=== PATIENT | female | born 1980 | race Caucasian/White ===

== ENCOUNTER 2016-05-12 06:49 | Emergency (ER) | payer OTHER ==
--- NOTE | 2016-05-12 07:53 | DIAGNOSTIC IMAGING REPORT ---
PROCEDURE: XR LUMBAR SPINE 2 OR 3 VIEWS INDICATION: LOWER BACK PAIN TECHNIQUE: Three views. COMPARISON: None. FINDINGS: There mild degenerative changes of the lower lumbar facet joints P Osseous structures and disc spaces are otherwise normal. No evidence of an acute process or fracture. Moderate stool and gas distention of the colon suggests obstipation. IMPRESSION: 1. Mild degenerative changes. 2. Otherwise negative lumbar spine. 3. Moderate stool and gaseous distention of the colon. Consider obstipation.
--- NOTE | 2016-05-12 08:24 | ED ORDER SUMMARY ---
..... Patient: FINN HUNTER OrderSheet [facility] VisitID: [id number] [place] [address] 35y, F Registration Date/Time: 05/12/2016 ORDER SHEET Weight: 65.7 kg Allergies: Vicodin, itchy, rash GENERAL ORDERS: Lumbar Spine 2 or 3V Urgent (07:16 05/12/2016 Bjorn Parra) (Ack 7:18 LMuller) (7:40 LMuller) UA-Culture if indicated Urgent (07:23 05/12/2016 Bjorn Parra) (Ack 7:31 LMuller) (7:59 LMuller) MEDICATION ORDERS: Toradol IM 60 mg (NOW) (07:16 05/12/2016 Bjorn Parra) (7:44 LWkeena R.N.) IV FLUIDS: ORDER SHEET NOTES: [Electronically signed by Benny Weeks Dr. (08:49 05/12/2016)] [Electronically signed by Lia Hennessy R.N. (10:32 05/14/2016)] [Electronically locked/signed by Lia Hennessy R.N. (10:32 05/14/2016)]
--- NOTE | 2016-05-12 08:24 | ED CLINICAL REPORT ---
Clinical Report - Physicians/Mid Levels [facility] [address] [place] [address] 05/12/2016 6:49 Patient: FINN HUNTER Time Seen: 06:58; initial patient contact. Arrived- By private vehicle. Historian- patient. HISTORY OF PRESENT ILLNESS Chief Complaint: BACK PAIN. Onset- about 3 days ago and it is still present (worse). It is described as being moderate in degree and in the area of the left mid lumbar spine, mid lumbar spine, left lower lumbar spine and lower lumbar spine. It is described as radiating to the left groin. The quality is noted to be "pain". Modifying factors- worsened by lying down, bending over or lifting. Not relieved by anything. No bladder dysfunction, bowel dysfunction, sensory loss or motor loss. Patient denies an injury but injury to the head or neck. Similar symptoms previously: None. Recent medical care: Not recently seen/assessed. REVIEW OF SYSTEMS No fever, chills, difficulty with urination, hematuria or abdominal pain. No nausea, vomiting or diarrhea. She has had constipation. All systems otherwise negative, except as recorded above. PAST HISTORY Ovarian Cyst. Surgeries: No history of previous surgery. Medications: None. Allergies: Vicodin, itchy, rash . SOCIAL HISTORY Current every day smoker. No alcohol use or drug use. ADDITIONAL NOTES The nursing notes have been reviewed with agreement regarding the chief complaint, PMH and patient medications and allergies. PHYSICAL EXAM Vital Signs: 05/12/2016 07:01 BP: 160/97. 05/12/2016 06:58 HR: 95. RR: 24. O2 saturation: 99%. Temp: 97.8 F. Have been reviewed. Hypertensive. Heart rate normal. Tachypneic. Temperature normal. Oxygen saturation normal. Appearance: Alert. Appears to be in pain. ENT: Pharynx normal. CVS: Heart sounds normal. Pulses normal. Respiratory: No respiratory distress. Breath sounds normal. Abdomen: Soft. Moderate tenderness diffusely. No guarding, rebound tenderness or Marroquin's, obturator or psoas sign present. Bowel sounds normal. No organomegaly. No mass. Back: Moderate muscle spasm of the left posterior back. Moderate soft tissue tenderness in the left mid and lower lumbar area. No vertebral point tenderness or CVA tenderness. Skin: Normal skin color. Extremities: Extremities exhibit normal ROM. Extremities nontender. Neuro: Oriented X 3. Mood/affect normal. No motor deficit. Straight leg raising: negative on the right and negative on the left. LABS, X-RAYS, AND EKG LS-Spine X-rays: Mild degenerative joint disease with slight narrowing of disc spaces. No fracture or subluxation. (Moderate gas and stool w/ colonic distension). Views: AP and lateral. Technique: good. The X-rays were independently viewed by me and interpreted contemporaneously by me. Prior films were not available for comparison. Interpretation time: 08:00. Laboratory Tests: UA-Culture if indicated: (DARRICK: 05/12/2016 07:50) ( [id number] 05/12/2016 08:04) Final results Test Result Flag Units (Reference) URINE COLOR RUTHIE URINE APPEARANCE SL CLOUDY URINE GLUCOSE NEGATIVE (NEGATIVE) URINE BILIRUBIN NEGATIVE (NEGATIVE) URINE KETONE TRACE (NEGATIVE) URINE SPECIFIC GRAVITY >= 1.030 (1.010-1.030) URINE PH 6.0 (5.0-8.0) URINE PROTEIN NEGATIVE (NEGATIVE) URINE UROBILINOGEN 0.2 EU/dL (0.2-1.0) URINE NITRITE POSITIVE (NEGATIVE) URINE BLOOD NEGATIVE (NEGATIVE) URINE LEUK ESTERASE NEGATIVE (NEGATIVE) URINE RBC NONE SEEN rbc/hpf (0-1) URINE WBC 0-1 wbc/hpf (0-1) URINE EPITHELIAL CELLS 1-3 EPI/hpf (0-5) URINE BACTERIA MANY (4+) (NONE SEEN) URINE COMMENT CULTURE INDICATED TRACE CALCIUM OXALATEURINE CULTURES ARE SET-UP BASED ON THE FOLLOWING CRITERIA:POSITIVE NITRITEPOSITIVE LEUKOCYTE ESTERASEGREATER THAN 10 WHITE BLOOD CELLSMODERATE (2+) OR GREATER BACTERIA . PROGRESS AND PROCEDURES Course of Care: Toradol 60mg IM given. Physical exam findings are improved. Symptoms much better. Disposition: Discharged home in good and improved condition. Condition: good. CLINICAL IMPRESSION Acute lumbar strain. Constipation Acute urinary tract infection with cystitis. INSTRUCTIONS Prescription Medications: Cipro 500 mg: take 1 tab orally every 12 hours for 3 days. No refills. Substitution is permissible. Diclofenac 50 mg tablets: take 1 tablet orally every 8 hours as needed for pain or stiffness. Dispense thirty (30). No refill. Follow-up: Follow up with your doctor in about two days. Call for an appointment. Screening today revealed the patient's blood pressure to be in the pre-hypertensive range. The patient should follow up with a primary care provider for blood pressure management. (Electronically signed by Benny Weeks Dr. 05/12/2016 8:49)
--- NOTE | 2016-05-12 08:24 | ED ORDER SUMMARY ---
..... Patient: FINN HUNTER OrderSheet [facility] VisitID: [id number] [place] [address] 35y, F Registration Date/Time: 05/12/2016 ORDER SHEET Weight: 65.7 kg Allergies: Vicodin, itchy, rash GENERAL ORDERS: Lumbar Spine 2 or 3V Urgent (07:16 05/12/2016 Bjorn Parra) (Ack 7:18 LMuller) (7:40 LMuller) UA-Culture if indicated Urgent (07:23 05/12/2016 Bjorn Parra) (Ack 7:31 LMuller) (7:59 LMuller) MEDICATION ORDERS: Toradol IM 60 mg (NOW) (07:16 05/12/2016 Bjorn Parra) (7:44 LWkeena R.N.) IV FLUIDS: ORDER SHEET NOTES: [Electronically signed by Benny Weeks Dr. (08:49 05/12/2016)] [Electronically signed by Lia Hennessy R.N. (10:32 05/14/2016)] [Electronically locked/signed by Lia Hennessy R.N. (10:32 05/14/2016)]
--- NOTE | 2016-05-12 08:24 | ED NURSING NOTES ---
Clinical Report - Nurses [facility] [address] [place] [address] 05/12/2016 6:49 Patient: FINN HUNTER TRIAGE Triage time 06:58 May 12 2016. Chief Complaint: (lower back pain). ( LMP 1 weeks ago). --07:01 Basim Long R.N. 06:58 05/12/16. HR: 95. RR: 24. O2 saturation: 99%. Temp: 97.8 F. --07:01 Basim Long R.N. 07:01 05/12/16. BP: 160/97. --07:01 Basim Long R.N. Alert. --07:02 Basim Long R.N. 07:05 05/12/16. Pain level now 01/28. --07:05 Basim Long R.N. Weight: 65.7 kg. Height/Length: 69 inches. BMI: 21.4. --07:00 Basim Long R.N. Medications None. --06:59 Basim Long R.N. Allergies Vicodin, itchy, rash . --06:59 Basim Long R.N. History Arrived by private vehicle. Historian: patient. ( Pt reports pain in her lower back for last 3 days, that has progressively gotten worse. no pain with urination.). SOCIAL HX: Heavy tobacco smoker. No alcohol use or drug use. --07:01 Basim Long R.N. PAST MEDICAL HX: Immunizations: up-to-date. --07:03 Basim Long R.N. PROBLEMS: Ovarian Cyst. --07:00 Basim Long R.N. Interventions ID and allergy band on patient. To treatment room. --07:01 Basim Long R.N. PHYSICAL ASSESSMENT GENERAL / NEURO / PSYCH: Alert. Oriented X 4. Appears in pain. RESPIRATORY: Respirations not labored. Breath sounds within normal limits. GI / : Bowel sounds within normal limits. SKIN: Skin is dry. --07:02 Basim Long R.N. ( walking increases pain, nothing makes it better). --07:03 Basim Long R.N. BACK: Limited ROM in the back. No vertebral point tenderness. ( Pt tearful unable to sit still, no obvious injury or deformity noted on inspection). --07:04 Basim Long R.N. To room via wheelchair. --07:07 Basim Long R.N. NURSING PROGRESS NOTES Monitoring of patient in place. Patient gowned. Reassurance given. Two patient identifiers checked. Side rails up x 1. Bed placed in lowest position. Brakes of bed on. Patient ready for evaluation- chart flagged and ED physician notified. --07:03 Basim Long R.N. 07:44 05/12/2016 Toradol (Ketorolac Tromethamine) IM 60 mg given. Given in the right gluteus madina and left gluteus madina (split dose). Allergies verified and confirmed 5 rights. --07:44 Emilia Garcia R.N. Patient ID band checked for patient name and birthdate: patient confirmed. Instructions provided to collect clean catch urine and patient verbalized understanding. Catheterized urine collected with return of yellow-colored urine; sample sent to lab for urinalysis. Specimen labeled in the presence of the patient. --08:01 Emilia Garcia R.N. 08:00 05/12/16. BP: 124/75. HR: 90. RR: 18. O2 saturation: 100%. Pain level now 8/10. --08:01 Emilia Garcia R.N. DISPOSITION / DISCHARGE No learning barriers present. Discharge instructions provided and reviewed with the patient. Reviewed warnings. Reviewed medication(s). Treatments reviewed. Reviewed referrals. Patient verbalized understanding. Written instructions provided in Bulgarian. The patient was discharged home and accompanied by web sizer. She left the Emergency Department ambulatory and via private vehicle. Sustainability Analyst driving. ( Gave pt a fleet enema and instructions to take home. Patient states has no money and would not be able to get one on her own.). --08:49 Emilia Garcia R.N. 08:48 05/12/16. BP: 142/90. HR: 71. RR: 18. O2 saturation: 100%. Temp: 98.0 F. Pain level now 05/31. --08:49 Emilia Garcia R.N. Locked/Released at 05/14/2016 10:32 by Lia Hennessy R.N.
--- NOTE | 2016-05-12 08:24 | ED NURSING NOTES ---
Clinical Report - Nurses [facility] [address] [place] [address] 05/12/2016 6:49 Patient: FINN HUNTER TRIAGE Triage time 06:58 May 12 2016. Chief Complaint: (lower back pain). ( LMP 1 weeks ago). --07:01 Basim Long R.N. 06:58 05/12/16. HR: 95. RR: 24. O2 saturation: 99%. Temp: 97.8 F. --07:01 Basim Long R.N. 07:01 05/12/16. BP: 160/97. --07:01 Basim Long R.N. Alert. --07:02 Basim Long R.N. 07:05 05/12/16. Pain level now 01/28. --07:05 Basim Long R.N. Weight: 65.7 kg. Height/Length: 69 inches. BMI: 21.4. --07:00 Basim Long R.N. Medications None. --06:59 Basim Long R.N. Allergies Vicodin, itchy, rash . --06:59 Basim Long R.N. History Arrived by private vehicle. Historian: patient. ( Pt reports pain in her lower back for last 3 days, that has progressively gotten worse. no pain with urination.). SOCIAL HX: Heavy tobacco smoker. No alcohol use or drug use. --07:01 Basim Long R.N. PAST MEDICAL HX: Immunizations: up-to-date. --07:03 Basim Long R.N. PROBLEMS: Ovarian Cyst. --07:00 Basim Long R.N. Interventions ID and allergy band on patient. To treatment room. --07:01 Basim Long R.N. PHYSICAL ASSESSMENT GENERAL / NEURO / PSYCH: Alert. Oriented X 4. Appears in pain. RESPIRATORY: Respirations not labored. Breath sounds within normal limits. GI / : Bowel sounds within normal limits. SKIN: Skin is dry. --07:02 Basim Long R.N. ( walking increases pain, nothing makes it better). --07:03 Basim Long R.N. BACK: Limited ROM in the back. No vertebral point tenderness. ( Pt tearful unable to sit still, no obvious injury or deformity noted on inspection). --07:04 Basmi Long R.N. To room via wheelchair. --07:07 Basim Long R.N. NURSING PROGRESS NOTES Monitoring of patient in place. Patient gowned. Reassurance given. Two patient identifiers checked. Side rails up x 1. Bed placed in lowest position. Brakes of bed on. Patient ready for evaluation- chart flagged and ED physician notified. --07:03 Basim Long R.N. 07:44 05/12/2016 Toradol (Ketorolac Tromethamine) IM 60 mg given. Given in the right gluteus madina and left gluteus madina (split dose). Allergies verified and confirmed 5 rights. --07:44 Emilia Garcia R.N. Patient ID band checked for patient name and birthdate: patient confirmed. Instructions provided to collect clean catch urine and patient verbalized understanding. Catheterized urine collected with return of yellow-colored urine; sample sent to lab for urinalysis. Specimen labeled in the presence of the patient. --08:01 Emilia Garcia R.N. 08:00 05/12/16. BP: 124/75. HR: 90. RR: 18. O2 saturation: 100%. Pain level now 8/10. --08:01 Emilia Garcia R.N. DISPOSITION / DISCHARGE No learning barriers present. Discharge instructions provided and reviewed with the patient. Reviewed warnings. Reviewed medication(s). Treatments reviewed. Reviewed referrals. Patient verbalized understanding. Written instructions provided in Khmer. The patient was discharged home and accompanied by marine engineering consultant. She left the Emergency Department ambulatory and via private vehicle. Pet Technologist driving. ( Gave pt a fleet enema and instructions to take home. Patient states has no money and would not be able to get one on her own.). --08:49 Emilia Garcia R.N. 08:48 05/12/16. BP: 142/90. HR: 71. RR: 18. O2 saturation: 100%. Temp: 98.0 F. Pain level now 05/31. --08:49 Emilia Garcia R.N. Locked/Released at 05/14/2016 10:32 by Lia Hennessy R.N.
--- NOTE | 2016-05-14 10:33 | ED DISCHARGE INSTRUCTIONS ---
Patient: FINN HUNTER General Instructions [facility] VisitID: [id number] [place] [address] 35y, F Registration Date/Time: 05/12/2016 Acute lumbar strain. Constipation Acute urinary tract infection with cystitis. INSTRUCTIONS Prescription Medications: Cipro 500 mg: take 1 tab orally every 12 hours for 3 days. No refills. Substitution is permissible. Diclofenac 50 mg tablets: take 1 tablet orally every 8 hours as needed for pain or stiffness. Dispense thirty (30). No refill. Follow-up: Follow up with your doctor in about two days. Call for an appointment. Screening today revealed the patient's blood pressure to be in the pre-hypertensive range. The patient should follow up with a primary care provider for blood pressure management. ADDITIONAL INFORMATION Back Pain [Acute Or Chronic] Back pain is usually caused by an injury to the muscles or ligaments of the spine. Sometimes the disks that separate each bone in the spine may bulge and cause pain by pressing on a nearby nerve. Back pain may also appear after a sudden twisting/bending force (such as in a car accident), after a simple awkward movement, or lifting something heavy with poor body positioning. In either case, muscle spasm is often present and adds to the pain. Acute back pain usually gets better in one to two weeks. Back pain related to disk disease, arthritis in the spinal joints or spinal stenosis (narrowing of the spinal canal) can become chronic and last for months or years. Unless you had a physical injury (for example, a car accident or fall) X-rays are usually not ordered for the initial evaluation of back pain. If pain continues and does not respond to medical treatment, x-rays and other tests may be performed at a later time. Home Care: You may need to stay in bed the first few days. But, as soon as possible, begin sitting or walking to avoid problems with prolonged bed rest (muscle weakness, worsening back stiffness and pain, blood clots in the legs). When in bed, try to find a position of comfort. A firm mattress is best. Try lying flat on your back with pillows under your knees. You can also try lying on your side with your knees bent up towards your chest and a pillow between your knees. Avoid prolonged sitting. This puts more stress on the lower back than standing or walking. During the first two days after injury, apply an ICE PACK to the painful area for 20 minutes every 2-4 hours. This will reduce swelling and pain. HEAT (hot shower, hot bath or heating pad) works well for muscle spasm. You can start with ice, then switch to heat after two days. Some patients feel best alternating ice and heat treatments. Use the one method that feels the best to you. You may use acetaminophen (Tylenol) or ibuprofen (Motrin, Advil) to control pain, unless another pain medicine was prescribed. [NOTE: If you have chronic liver or kidney disease or ever had a stomach ulcer or GI bleeding, talk with your doctor before using these medicines.] Be aware of safe lifting methods and do not lift anything over 15 pounds until all the pain is gone. Follow Up with your doctor or this facility if your symptoms do not start to improve after one week. Physical therapy may be needed. [NOTE: If X-rays were taken, they will be reviewed by a radiologist. You will be notified of any new findings that may affect your care.] Get Prompt Medical Attention if any of the following occur: Pain becomes worse or spreads to your legs Weakness or numbness in one or both legs Loss of bowel or bladder control Numbness in the groin or genital area Constipation (Adult) Constipation is bowel movements that are less frequent than usual. Stools often become very hard and difficult to pass. This may lead to abdominal pain and bloating. It may also cause painful bowel movements. Constipation may be due to a diet thats low in fiber. Some medications, especially pain medications, can also cause it. Constipation may be treated with enemas, suppositories, laxatives or stool softeners. Your doctor will advise you which will work best for you. Follow the advice below to help avoid this problem in the future. Home Care Medication: Take any medicines as directed. Some laxatives are safe only for occasional use. Others can be taken on a regular basis. Talk to your doctor or pharmacist if you have questions. General Care: Prescription pain medications can cause constipation. If you are prescribed pain medications, ask the doctor whether you should also take a stool softener. A diet high in fiber with plenty of fluids helps to maintain regular, soft bowel movements. The following foods are good sources of dietary fiber: Cereals and breads: Whole grain cereal with bran, oatmeal, rolled oats, whole grain breads Fruits: All fruits (fresh and dried), raisins, prunes, apricots, berries, figs Vegetables: Any fresh vegetables, especially peas, broccoli, brussels sprouts, winter squash, green beans, cauliflower, gibson beans, carrots Other: Popcorn, brown rice Drink plenty of water when you increase the amount of fiber you eat. Follow Up with your doctor or return to this facility if symptoms do not improve in the next few days. You may require further tests or a referral to a specialist. Get Prompt Medical Attention if any of the following occur: Fever over 100.4F (38C) Failure to resume normal bowel movements Increasing abdominal or back pain Nausea or vomiting Abdominal swelling Blood in the stool Weakness, dizziness or fainting Unexpected vaginal bleeding Bladder Infection,Female (Adult) A bladder infection ("cystitis" or "UTI") usually causes a constant urge to urinate and a burning when passing urine. Urine may be cloudy, smelly or dark. There may be pain in the lower abdomen. A bladder infection occurs when bacteria from the vaginal area enter the bladder opening (urethra). This can occur from sexual intercourse, wearing tight clothing, dehydration and other factors. Home Care: Drink lots of fluids (at least 6-8 glasses a day, unless you must restrict fluids for other medical reasons). This will force the medicine into your urinary system and flush the bacteria out of your body. Avoid sexual intercourse until your symptoms are gone. Avoid caffeine, alcohol and spicy foods. These can irritate the bladder. A bladder infection is treated with antibiotics. You may also be given Pyridium (generic = phenazopyridine) to reduce the burning sensation. This medicine will cause your urine to become a bright orange color. The orange urine may stain clothing. You may wear a pad or panty-liner to protect clothing. Preventing Future Infections: Always wipe from front to back after a bowel movement. Keep the genital area clean and dry. Drink plenty of fluids each day to avoid dehydration. Both sexual partners should wash before intercourse. Urinate right after intercourse to flush out the bladder. Wear cotton underwear and cotton-lined panty hose; avoid tight-fitting pants. If you are on control pills and are having frequent bladder infections, discuss with your doctor. Follow Up: Return to this facility or see your doctor if ALL symptoms are not gone after three days of treatment. Get Prompt Medical Attention if any of the following occur: Fever of 100.4F (38C) or higher, or as directed by your healthcare provider No improvement by the third day of treatment Increasing back or abdominal pain Repeated vomiting; unable to keep medicine down Weakness, dizziness or fainting Vaginal discharge Pain, redness or swelling in the labia (outer vaginal area) Ciprofloxacin Hydrochloride Oral tablet What is this medicine? CIPROFLOXACIN (sip adebayo FLOX a sin) is a quinolone antibiotic. It is used to treat certain kinds of bacterial infections. It will not work for colds, flu, or other viral infections. How should I use this medicine? Take this medicine by mouth with a glass of water. Follow the directions on the prescription label. Take your medicine at regular intervals. Do not take your medicine more often than directed. Take all of your medicine as directed even if you think your are better. Do not skip doses or stop your medicine early. You can take this medicine with food or on an empty stomach. It can be taken with a meal that contains dairy or calcium, but do not take it alone with a dairy product, like milk or yogurt or calcium-fortified juice. A special MedGuide will be given to you by the pharmacist with each prescription and refill. Be sure to read this information carefully each time. Talk to your irrigation system installer regarding the use of this medicine in children. Special care may be needed. What side effects may I notice from receiving this medicine? Side effects that you should report to your doctor or health direct care staffer as soon as possible: - allergic reactions like skin rash, itching or hives, swelling of the face, lips, or tongue - breathing problems - confusion, nightmares or hallucinations - feeling faint or lightheaded, falls - irregular heartbeat - joint, muscle or tendon pain or swelling - pain or trouble passing urine -persistent headache with or without blurred vision - redness, blistering, peeling or loosening of the skin, including inside the mouth - seizure - unusual pain, numbness, tingling, or weakness Side effects that usually do not require medical attention (report to your doctor or health direct care staffer if they continue or are bothersome): - diarrhea - nausea or stomach upset - white patches or sores in the mouth What may interact with this medicine? Do not take this medicine with any of the following medications: cisapride droperidol terfenadine tizanidine This medicine may also interact with the following medications: antacids caffeine cyclosporin didanosine (ddI) buffered tablets or powder medicines for diabetes medicines for inflammation like ibuprofen, naproxen methotrexate multivitamins omeprazole phenytoin probenecid sucralfate theophylline warfarin What if I miss a dose? If you miss a dose, take it as soon as you can. If it is almost time for your next dose, take only that dose. Do not take double or extra doses. Where should I keep my medicine? Keep out of the reach of children. Store at room temperature below 30 degrees C (86 degrees F). Keep container tightly closed. Throw away any unused medicine after the expiration date. What should I tell my health care provider before I take this medicine? They need to know if you have any of these conditions: -bone problems -cerebral disease -joint problems -irregular heartbeat -kidney disease -liver disease -myasthenia gravis -seizure disorder -tendon problems -an unusual or allergic reaction to ciprofloxacin, other antibiotics or medicines, foods, dyes, or preservatives - or trying to get -breast-feeding What should I watch for while using this medicine? Tell your doctor or health direct care staffer if your symptoms do not improve. Do not treat diarrhea with over the counter products. Contact your doctor if you have diarrhea that lasts more than 2 days or if it is severe and watery. You may get drowsy or dizzy. Do not drive, use machinery, or do anything that needs mental alertness until you know how this medicine affects you. Do not stand or sit up quickly, especially if you are an older patient. This reduces the risk of dizzy or fainting spells. This medicine can make you more sensitive to the sun. Keep out of the sun. If you cannot avoid being in the sun, wear protective clothing and use sunscreen. Do not use sun lamps or tanning beds/booths. Avoid antacids, aluminum, calcium, iron, magnesium, and zinc products for 6 hours before and 2 hours after taking a dose of this medicine. You have been given the following additional information: Back Pain (Acute Or Chronic) Constipation (Adult) Bladder Infection, Female (Adult) Ciprofloxacin Hydrochloride Oral tablet (Electronically signed by Benny Weeks Dr. 05/12/2016 8:49)
--- NOTE | 2016-05-14 10:33 | ED MED RECONCILIATION SUMMARY ---
Patient: FINN HUNTER Medication Reconciliation Report [facility] VisitID: [id number] [place] [address] 35y, F Registration Date/Time: 05/12/2016 Weight: 65.7 kg Height/Length: 69 in. BMI: 21.4 ALLERGIES: Vicodin, itchy, rash The patient's Home Medications are listed below: NONE. The source(s) of the original Home Medication information: Not obtained. The following Medications were given to the patient in the Emergency Department: Toradol [IM] IM 60 mg, administered: 05/12/2016 7:44:00 AM The following Medications were prescribed to the patient: Cipro 500 mg: take 1 tab orally every 12 hours for 3 days. No refills. Substitution is permissible. -- Benny Weeks Dr. Diclofenac 50 mg tablets: take 1 tablet orally every 8 hours as needed for pain or stiffness. Dispense thirty (30). No refill. -- Benny Weeks Dr.
--- NOTE | 2016-05-14 10:33 | ED MED RECONCILIATION SUMMARY ---
Patient: FINN HUNTER Medication Reconciliation Report [facility] VisitID: [id number] [place] [address] 35y, F Registration Date/Time: 05/12/2016 Weight: 65.7 kg Height/Length: 69 in. BMI: 21.4 ALLERGIES: Vicodin, itchy, rash The patient's Home Medications are listed below: NONE. The source(s) of the original Home Medication information: Not obtained. The following Medications were given to the patient in the Emergency Department: Toradol [IM] IM 60 mg, administered: 05/12/2016 7:44:00 AM The following Medications were prescribed to the patient: Cipro 500 mg: take 1 tab orally every 12 hours for 3 days. No refills. Substitution is permissible. -- Benny Weeks Dr. Diclofenac 50 mg tablets: take 1 tablet orally every 8 hours as needed for pain or stiffness. Dispense thirty (30). No refill. -- Benny Weeks Dr.
--- NOTE | 2016-05-14 10:33 | ED MAR SUMMARY ---
..... Medication Administration Record [facility] [address] [place] [address] Patient: FINN HUNTER Visit ID: [id number] 35y, F Weight: 65.7 kg Height/Length: 69 in BMI: 21.4 ALLERGIES: Vicodin, itchy, rash Given 07:44 05/12/2016 Emilia Garcia RJorgeNJorge Medication Administered: TORADOL [IM] (KETOROLAC TROMETHAMINE), Dose: 60 mg IM. Medication Ordered: Toradol IM 60 mg (NOW).
--- NOTE | 2016-05-14 10:33 | ED MAR SUMMARY ---
..... Medication Administration Record [facility] [address] [place] [address] Patient: FINN HUNTER Visit ID: [id number] 35y, F Weight: 65.7 kg Height/Length: 69 in BMI: 21.4 ALLERGIES: Vicodin, itchy, rash Given 07:44 05/12/2016 Emilia Garcia RJorgeNJorge Medication Administered: TORADOL [IM] (KETOROLAC TROMETHAMINE), Dose: 60 mg IM. Medication Ordered: Toradol IM 60 mg (NOW).
== END 2016-05-12 08:50 | disposition home or self-care (01) ==
LOC: ED SRH 06:49
DX: S39.012A Strain of muscle, fascia and tendon of lower back, initial encounter (principal); X58.XXXA Exposure to other specified factors, initial encounter; Y93.9 Activity, unspecified; Y92.9 Unspecified place or not applicable; Y99.9 Unspecified external cause status; K59.00 Constipation, unspecified; N30.00 Acute cystitis without hematuria; Z88.5 Allergy status to narcotic agent
CPT/HCPCS: 81460; 90004; 90148; 90469

== ENCOUNTER 2016-05-15 00:44 | Emergency (ER) | payer OTHER ==
--- NOTE | 2016-05-15 02:17 | ED NURSING NOTES ---
Clinical Report - Nurses [facility] [address] [place] [address] 05/15/2016 0:45 Patient: FINN HUNTER TRIAGE Triage time 00:49. Acuity: LEVEL 4. Chief Complaint: BACK PAIN. --00:57 Kacey Wiseman R.N. 00:48 05/15/16. BP: 127/77. HR: 108. RR: 18. O2 saturation: 100% on room air. Temp: 98 F (oral). Pain level now: 01/28. --00:57 Kacey Wiseman R.N. <<STRICKEN ENTRY-- 03:20 05/15/16. BP: 139/88. HR: 84. RR: 16 (regular and unlabored). O2 saturation: 100% on room air. Temp: 97.8 F. Mcarthur-Billy pain scale: 07/29. --03:25 Kacey Wiseman R.N. --END STRIKE>> Charted on wrong patient. --03:25 Kacey Wiseman R.N. Weight: 63.5 kg stated. Height/Length: 69 inches Per Patient. BMI: 20.7. --00:56 Kacey Wiseman R.N. Medications None. --00:54 Kacey Wiseman R.N. Allergies Vicoden.(itching) --00:54 Kacey Wiseman R.N. History Arrived by private vehicle, and accompanied by friend. Primary physician (None). ( has not had BM for 8-10 days, was seen here.). Onset. (about 1 weeks ago). 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 PAST MEDICAL HX: Tetanus status: up-to-date. Immunizations: up-to-date. Last normal menstrual period was 2 weeks ago. Sexual history - sexually active. No contraception. SOCIAL HX: Heavy tobacco smoker- less than 1 pack per day. No alcohol use or drug use. NUTRITIONAL RISK ASSESSMENT: The nutritional risk assessment revealed no deficiencies. FUNCTIONAL ASSESSMENT: Functional assessment: no impairments noted. --00:57 Kacey Wiseman R.N. Primary physician (Criselda). --03:25 Kacey Wiseman R.N. PROBLEMS: Constipation. Lumbar Strain. Dislocated Wrist. Hypertension. Uterine Fibroid. Cervical Dysplasia. Ovarian Cyst. --00:54 Kacey Wiseman R.N. ADDITIONAL SURGERIES: . Laparoscopy. --00:54 Kacey Wiseman R.N. Interventions ID band on patient. To treatment room. --00:57 Kacey Wiseman R.N. PHYSICAL ASSESSMENT To room via wheelchair. Patient gowned. GENERAL / NEURO / PSYCH: Alert. Oriented X 4. Appears in pain. RESPIRATORY: Respirations not labored. CVS: Capillary refill less than 2 seconds. --00:57 Kacey Wiseman R.N. NURSING PROGRESS NOTES Head of bed elevated. Two patient identifiers checked. Call light placed in reach. Side rails up x 1. Bed placed in lowest position. Brakes of bed on. --00:57 Kacey Wiseman R.N. Patient ready for evaluation- chart flagged. --00:57 Kacey Wiseman R.N. 01:00 05/15/2016 Site #1 started via IV in the right antecubital space with an 20g angiocath, with aseptic technique and good blood return; one attempt. Blood drawn: rainbow set. Labeled in the presence of the patient and sent to the lab. Saline lock flushed with 10 mL saline. --01:04 Chucho Marcus R.N. 01:01 05/15/2016 Started bag #1 1000 mL IV Fluids IV NS (Saline); at 1000 mL/hr over 30 minute(s) via site #1 --01:04 Chucho Marcus R.N. 8 fr in/out catheterization. During procedure hand hygiene observed and sterile equipment and aseptic technique used. Return of less than 50 mL yellow-colored clear urine. She tolerated procedure well. Patient ID band checked for patient name and birthdate: patient confirmed. Catheterized urine collected with return of yellow-colored clear urine; sample sent to lab. Specimen labeled in the presence of the patient. --01:15 Kacey Wiseman R.N. 02:06 05/15/2016 Toradol IVP 30 mg given over 30 second(s) via site #1. Allergies verified and confirmed 5 rights. IV patency established. IV site checked: no pain, redness, or swelling. IV flushed thoroughly pre- and post-medication administration. IVP given by RN. --02:08 Kacey Wiseman R.N. 02:08 05/15/16. BP: 121/79. HR: 91. RR: 15. O2 saturation: 100% on room air. Mcarthur-Billy pain scale: 10. --02:09 Kacey Wiseman R.N. DISPOSITION / DISCHARGE 02:28 05/15/16. BP: 113/80. HR: 83. RR: 15. O2 saturation: 100% on room air. Temp: deferred. Mcarthur-Billy pain scale: 10. --02:29 Kacey Wiseman R.N. Condition at departure: stable. No learning barriers present. Discharge instructions provided and reviewed with the patient. Reviewed medication(s) side effects, precautions, dosing and course information. Prescription(s) given to the patient. Patient verbalized understanding. Written instructions provided in Bulgarian. The patient was discharged home and accompanied by software writer. She left the Emergency Department via private vehicle. Installation & Maintenance Executive driving. --02:30 Kacey Wiseman R.N. multiple phone calls made to try to get pt a ride home. unable to reach friends at this time. --03:49 Kacey Wiseman R.N. Departure time: 07:59 May 15 2016. ( Had difficulty getting patient a ride assisted with phone calls.). --07:59 Emilia Garcia R.N. Locked/Released at 05/15/2016 14:15 by Radha Lopez R.N.
--- NOTE | 2016-05-15 02:17 | ED ORDER SUMMARY ---
..... Patient: FINN HUNTER OrderSheet [facility] VisitID: [id number] [address] [place] [address] 35y, F Registration Date/Time: 05/15/2016 ORDER SHEET Weight: 63.5 kg (stated) Allergies: Vicoden GENERAL ORDERS: CBC w Diff Urgent (00:49 05/15/2016 Hermelinda ROJAS) (Ack 0:55 CHagerty ER Doctor Of Nurse Anesthesia) (1:03 JQuivey R.N.) CMP Urgent (00:49 05/15/2016 Hermelinda ROJAS) (Ack 0:55 CHagerty ER Doctor Of Nurse Anesthesia) (1:03 JQuivey R.N.) UA-Culture if indicated Urgent (00:49 05/15/2016 Hermelinda ROJAS) (Ack 0:55 CHagerty ER Doctor Of Nurse Anesthesia) (1:15 RCollier R.N.) Amylase Urgent (00:49 05/15/2016 Hermelinda ROJAS) (Ack 0:55 CHagerty ER Doctor Of Nurse Anesthesia) (1:03 JQuivey R.N.) Lipase Urgent (00:49 05/15/2016 Hermelinda ROJAS) (Ack 0:55 CHagerty ER Doctor Of Nurse Anesthesia) (1:03 JQuivey R.N.) Urine Urgent (00:49 05/15/2016 Hermelinda ROJAS) (Ack 0:55 CHagerty ER Doctor Of Nurse Anesthesia) (1:15 RCollier R.N.) MEDICATION ORDERS: IV FLUIDS: IV NS : initial bolus 500 mL (1000 mL/hr), then 125 mL/hr for 4h (NOW); Urgent (00:48 05/15/2016 Hermelinda ROJAS) (Ack 0:55 JQuivey R.N.) (1:04 JQuivey R.N.) Toradol IV 30 mg (NOW) (01:56 05/15/2016 Hermelinda ROJAS) (Ack 2:03 RCollier R.N.) (2:08 RCollier R.N.) ORDER SHEET NOTES: [Electronically signed by Radha Lopez R.N. (14:14 05/15/2016)] [Electronically signed by Jax Polanco MD (15:52 05/19/2016)] [Electronically locked/signed by Radha Lopez R.N. (14:14 05/15/2016)]
--- NOTE | 2016-05-15 02:17 | ED CLINICAL REPORT ---
Clinical Report - Physicians/Mid Levels [facility] [address] [place] [address] 05/15/2016 0:45 Patient: FINN HUNTER Time Seen: 00:48. Arrived- By private vehicle. Historian- patient. HISTORY OF PRESENT ILLNESS Chief Complaint: BACK PAIN. It is described as being severe and in the area of the left mid lumbar spine and left lower lumbar spine. The quality is noted to be "pain" and similar to prior episodes. Onset was last night and it is still present. It was abrupt in onset and has been constant. No bladder dysfunction, bowel dysfunction, sensory loss or motor loss. Patient denies an injury. Recent medical care: ( patient was seen here for similar symptoms several days ago. However she did not get her prescriptions filled. Her symptoms have persisted). REVIEW OF SYSTEMS No urgency, frequency or hesitancy of urination or urinary incontinence. No chills, fever, sweats, calf pain or chest pain. No cough, difficulty breathing, pedal edema, palpitations or painful urination. All systems otherwise negative, except as recorded above. PAST HISTORY PCP - None. SOCIAL HISTORY Current every day heavy tobacco smoker (cigarette)- less than 1 pack per day. No alcohol use or drug use. FAMILY HISTORY Denies family medical history. ADDITIONAL NOTES The nursing notes have been reviewed. PHYSICAL EXAM Vital Signs: 05/15/2016 00:48 BP: 127/77. HR: 108. RR: 18. O2 saturation: 100%. Temp: 98 F. Pain level now: 01/28. Have been reviewed. Appearance: Alert. ENT: Ears normal. Neck: Neck nontender. Painless ROM. No vertebral tenderness. CVS: Heart sounds normal. Respiratory: No respiratory distress. Breath sounds normal. Abdomen: No visible injury. Soft and nontender. Bowel sounds normal. No organomegaly. No mass. Back: Normal inspection. Limited ROM in the back. No vertebral point tenderness or CVA tenderness. Skin: Skin warm and dry. Normal skin color. No rash. Normal skin turgor. Extremities: Extremities exhibit normal ROM. Extremities nontender. Neuro: No motor deficit. No sensory deficit. LABS, X-RAYS, AND EKG Laboratory Tests: UA-Culture if indicated: (DARRICK: 05/15/2016 00:49) ( [facility] [place] 05/15/2016 01:40) Final results Test Result Flag Units (Reference) URINE COLOR YELLOW URINE APPEARANCE SL CLOUDY URINE GLUCOSE NEGATIVE (NEGATIVE) URINE BILIRUBIN NEGATIVE (NEGATIVE) URINE KETONE NEGATIVE (NEGATIVE) URINE SPECIFIC GRAVITY >= 1.030 (1.010-1.030) URINE PH 6.0 (5.0-8.0) URINE PROTEIN TRACE (NEGATIVE) URINE UROBILINOGEN 0.2 EU/dL (0.2-1.0) URINE NITRITE POSITIVE (NEGATIVE) URINE BLOOD NEGATIVE (NEGATIVE) URINE LEUK ESTERASE NEGATIVE (NEGATIVE) URINE RBC 3-5 rbc/hpf (0-1) URINE WBC 3-5 wbc/hpf (0-1) URINE EPITHELIAL CELLS 1-3 EPI/hpf (0-5) URINE BACTERIA MANY (4+) (NONE SEEN) URINE COMMENT CULTURE INDICATED URINE CULTURES ARE SET-UP BASED ON THE FOLLOWING CRITERIA:POSITIVE NITRITEPOSITIVE LEUKOCYTE ESTERASEGREATER THAN 10 WHITE BLOOD CELLSMODERATE (2+) OR GREATER BACTERIA Urine: (DARRICK: 05/15/2016 00:49) ( [facility] 05/15/2016 01:38) Final results Test Result Flag Units (Reference) URINE NEGATIVE CMP: (DARRICK: 05/15/2016 01:03) ( [facility] 05/15/2016 01:30) Final results Test Result Flag Units (Reference) GLUCOSE 103 mg/dL (70-110) BUN 16 mg/dL (7-18) CREATININE 0.8 mg/dL (0.6-1.3) Estimated GFR >60 mL/min Estimated GFR- >60 mL/min Note: Persistent reduction over 3 months in eGFR<60 mL/min/1.73 m2 defines CKD. Patients with eGFR values>=60 mL/min/1.73 m2 may also have CKD if evidence ofpersistent proteinuria. Additional information may be foundat www.[email or web address]. SODIUM 138 mmol/L (136-145) POTASSIUM 4.0 mmol/L (3.5-5.1) CHLORIDE 103 mmol/L (98-107) CARBON DIOXIDE 25 mmol/L (21-32) CALCIUM 8.8 mg/dL (8.5-10.1) TOTAL PROTEIN 7.9 g/dL (6.4-8.2) ALBUMIN 3.5 g/dL (3.3-5.0) BILIRUBIN, TOTAL 0.3 mg/dL (0.0-1.0) ALKALINE PHOSPHATASE 77 U/L (46-116) AST (SGOT) 13 L U/L (15-37) ALT (SGPT) 22 U/L (12-78) LIPASE 228 U/L (73-393) AMYLASE 93 U/L (25-115) . PROGRESS AND PROCEDURES Course of Care: Patient is stable. Patient/family counseled. Old medical records ordered. Disposition: Discharged. Condition: stable. CLINICAL IMPRESSION Back pain. Acute urinary tract infection. Constipation INSTRUCTIONS Limit lifting. Warnings: GENERAL WARNINGS: Return or contact your physician immediately if your condition worsens or changes unexpectedly, if not improving as expected, or if other problems arise. Prescription Medications: Cipro 500 mg: take 1 tab orally every 12 hours for 10 days. Dispense twenty (20). No refills. Substitution is permissible. Diclofenac 50 mg tablets: Take 1 tablet orally every 8 hours as needed. Dispense thirty (30). No refills. OTC Medications: Magnesium Citrate (10-oz bottle) (available over the counter): take 1/2 bottle to achieve bowel movement. Repeat after 4 hours if needed. Understanding of the discharge instructions verbalized by patient. Follow-up with: [facility], , , [address], , [place], [address] Follow up today. Call for an appointment. (Electronically signed by Jax Polanco MD 05/19/2016 15:52)
--- NOTE | 2016-05-15 02:17 | ED NURSING NOTES ---
Clinical Report - Nurses [facility] [address] [place] [address] 05/15/2016 0:45 Patient: FINN HUNTER TRIAGE Triage time 00:49. Acuity: LEVEL 4. Chief Complaint: BACK PAIN. --00:57 Kacey Wiseman R.N. 00:48 05/15/16. BP: 127/77. HR: 108. RR: 18. O2 saturation: 100% on room air. Temp: 98 F (oral). Pain level now: 01/28. --00:57 Kacey Wiseman R.N. <<STRICKEN ENTRY-- 03:20 05/15/16. BP: 139/88. HR: 84. RR: 16 (regular and unlabored). O2 saturation: 100% on room air. Temp: 97.8 F. Mcarthur-Billy pain scale: 07/29. --03:25 Kacey Wiseman R.N. --END STRIKE>> Charted on wrong patient. --03:25 Kacey Wiseman R.N. Weight: 63.5 kg stated. Height/Length: 69 inches Per Patient. BMI: 20.7. --00:56 Kacey Wiseman R.N. Medications None. --00:54 Kacey Wiseman R.N. Allergies Vicoden.(itching) --00:54 Kacey Wiseman R.N. History Arrived by private vehicle, and accompanied by friend. Primary physician (None). ( has not had BM for 8-10 days, was seen here.). Onset. (about 1 weeks ago). Treatment DIRECTOR OF PUBLIC HEALTH: (15mg muscle relaxer). PAST MEDICAL HX: Tetanus status: up-to-date. Immunizations: up-to-date. Last normal menstrual period was 2 weeks ago. Sexual history - sexually active. No contraception. SOCIAL HX: Heavy tobacco smoker- less than 1 pack per day. No alcohol use or drug use. NUTRITIONAL RISK ASSESSMENT: The nutritional risk assessment revealed no deficiencies. FUNCTIONAL ASSESSMENT: Functional assessment: no impairments noted. --00:57 Kacey Wiseman R.N. Primary physician (Criselda). --03:25 Kacey Wiseman R.N. PROBLEMS: Constipation. Lumbar Strain. Dislocated Wrist. Hypertension. Uterine Fibroid. Cervical Dysplasia. Ovarian Cyst. --00:54 Kacey Wiseman R.N. ADDITIONAL SURGERIES: . Laparoscopy. --00:54 Kacey Wiseman R.N. Interventions ID band on patient. To treatment room. --00:57 Kacey Wiseman R.N. PHYSICAL ASSESSMENT To room via wheelchair. Patient gowned. GENERAL / NEURO / PSYCH: Alert. Oriented X 4. Appears in pain. RESPIRATORY: Respirations not labored. CVS: Capillary refill less than 2 seconds. --00:57 Kacey Wiseman R.N. NURSING PROGRESS NOTES Head of bed elevated. Two patient identifiers checked. Call light placed in reach. Side rails up x 1. Bed placed in lowest position. Brakes of bed on. --00:57 Kacey Wiseman R.N. Patient ready for evaluation- chart flagged. --00:57 Kacey Wiseman R.N. 01:00 05/15/2016 Site #1 started via IV in the right antecubital space with an 20g angiocath, with aseptic technique and good blood return; one attempt. Blood drawn: rainbow set. Labeled in the presence of the patient and sent to the lab. Saline lock flushed with 10 mL saline. --01:04 Chucho Marcus R.N. 01:01 05/15/2016 Started bag #1 1000 mL IV Fluids IV NS (Saline); at 1000 mL/hr over 30 minute(s) via site #1 --01:04 Chucho Marcus R.N. 8 fr in/out catheterization. During procedure hand hygiene observed and sterile equipment and aseptic technique used. Return of less than 50 mL yellow-colored clear urine. She tolerated procedure well. Patient ID band checked for patient name and birthdate: patient confirmed. Catheterized urine collected with return of yellow-colored clear urine; sample sent to lab. Specimen labeled in the presence of the patient. --01:15 Kacey Wiseman R.N. 02:06 05/15/2016 Toradol IVP 30 mg given over 30 second(s) via site #1. Allergies verified and confirmed 5 rights. IV patency established. IV site checked: no pain, redness, or swelling. IV flushed thoroughly pre- and post-medication administration. IVP given by RN. --02:08 Kacey Wiseman R.N. 02:08 05/15/16. BP: 121/79. HR: 91. RR: 15. O2 saturation: 100% on room air. Mcarthur-Billy pain scale: 10. --02:09 Kacey Wiseman R.N. DISPOSITION / DISCHARGE 02:28 05/15/16. BP: 113/80. HR: 83. RR: 15. O2 saturation: 100% on room air. Temp: deferred. Mcarthur-Billy pain scale: 10. --02:29 Kacey Wiseman R.N. Condition at departure: stable. No learning barriers present. Discharge instructions provided and reviewed with the patient. Reviewed medication(s) side effects, precautions, dosing and course information. Prescription(s) given to the patient. Patient verbalized understanding. Written instructions provided in Malawian. The patient was discharged home and accompanied by turning machine operator helper. She left the Emergency Department via private vehicle. 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 --02:30 Kacey Wiseman R.N. multiple phone calls made to try to get pt a ride home. unable to reach friends at this time. --03:49 Kacey Wiseman R.N. Departure time: 07:59 May 15 2016. ( Had difficulty getting patient a ride assisted with phone calls.). --07:59 Emilia Garcia R.N. Locked/Released at 05/15/2016 14:15 by Radha Lopez R.N.
--- NOTE | 2016-05-15 02:17 | ED CLINICAL REPORT ---
Clinical Report - Physicians/Mid Levels [facility] [address] [place] [address] 05/15/2016 0:45 Patient: FINN HUNTER Time Seen: 00:48. Arrived- By private vehicle. Historian- patient. HISTORY OF PRESENT ILLNESS Chief Complaint: BACK PAIN. It is described as being severe and in the area of the left mid lumbar spine and left lower lumbar spine. The quality is noted to be "pain" and similar to prior episodes. Onset was last night and it is still present. It was abrupt in onset and has been constant. No bladder dysfunction, bowel dysfunction, sensory loss or motor loss. Patient denies an injury. Recent medical care: ( patient was seen here for similar symptoms several days ago. However she did not get her prescriptions filled. Her symptoms have persisted). REVIEW OF SYSTEMS No urgency, frequency or hesitancy of urination or urinary incontinence. No chills, fever, sweats, calf pain or chest pain. No cough, difficulty breathing, pedal edema, palpitations or painful urination. All systems otherwise negative, except as recorded above. PAST HISTORY PCP - None. SOCIAL HISTORY Current every day heavy tobacco smoker (cigarette)- less than 1 pack per day. No alcohol use or drug use. FAMILY HISTORY Denies family medical history. ADDITIONAL NOTES The nursing notes have been reviewed. PHYSICAL EXAM Vital Signs: 05/15/2016 00:48 BP: 127/77. HR: 108. RR: 18. O2 saturation: 100%. Temp: 98 F. Pain level now: 01/28. Have been reviewed. Appearance: Alert. ENT: Ears normal. Neck: Neck nontender. Painless ROM. No vertebral tenderness. CVS: Heart sounds normal. Respiratory: No respiratory distress. Breath sounds normal. Abdomen: No visible injury. Soft and nontender. Bowel sounds normal. No organomegaly. No mass. Back: Normal inspection. Limited ROM in the back. No vertebral point tenderness or CVA tenderness. Skin: Skin warm and dry. Normal skin color. No rash. Normal skin turgor. Extremities: Extremities exhibit normal ROM. Extremities nontender. Neuro: No motor deficit. No sensory deficit. LABS, X-RAYS, AND EKG Laboratory Tests: UA-Culture if indicated: (DARRICK: 05/15/2016 00:49) ( [facility] 05/15/[place] 01:40) Final results Test Result Flag Units (Reference) URINE COLOR YELLOW URINE APPEARANCE SL CLOUDY URINE GLUCOSE NEGATIVE (NEGATIVE) URINE BILIRUBIN NEGATIVE (NEGATIVE) URINE KETONE NEGATIVE (NEGATIVE) URINE SPECIFIC GRAVITY >= 1.030 (1.010-1.030) URINE PH 6.0 (5.0-8.0) URINE PROTEIN TRACE (NEGATIVE) URINE UROBILINOGEN 0.2 EU/dL (0.2-1.0) URINE NITRITE POSITIVE (NEGATIVE) URINE BLOOD NEGATIVE (NEGATIVE) URINE LEUK ESTERASE NEGATIVE (NEGATIVE) URINE RBC 3-5 rbc/hpf (0-1) URINE WBC 3-5 wbc/hpf (0-1) URINE EPITHELIAL CELLS 1-3 EPI/hpf (0-5) URINE BACTERIA MANY (4+) (NONE SEEN) URINE COMMENT CULTURE INDICATED URINE CULTURES ARE SET-UP BASED ON THE FOLLOWING CRITERIA:POSITIVE NITRITEPOSITIVE LEUKOCYTE ESTERASEGREATER THAN 10 WHITE BLOOD CELLSMODERATE (2+) OR GREATER BACTERIA Urine: (DARRICK: 05/15/2016 00:49) ( [facility] 05/15/2016 01:38) Final results Test Result Flag Units (Reference) URINE NEGATIVE CMP: (DARRICK: 05/15/2016 01:03) ( [facility] 05/15/2016 01:30) Final results Test Result Flag Units (Reference) GLUCOSE 103 mg/dL (70-110) BUN 16 mg/dL (7-18) CREATININE 0.8 mg/dL (0.6-1.3) Estimated GFR >60 mL/min Estimated GFR- >60 mL/min Note: Persistent reduction over 3 months in eGFR<60 mL/min/1.73 m2 defines CKD. Patients with eGFR values>=60 mL/min/1.73 m2 may also have CKD if evidence ofpersistent proteinuria. Additional information may be foundat www.[email or web address].org. SODIUM 138 mmol/L (136-145) POTASSIUM 4.0 mmol/L (3.5-5.1) CHLORIDE 103 mmol/L (98-107) CARBON DIOXIDE 25 mmol/L (21-32) CALCIUM 8.8 mg/dL (8.5-10.1) TOTAL PROTEIN 7.9 g/dL (6.4-8.2) ALBUMIN 3.5 g/dL (3.3-5.0) BILIRUBIN, TOTAL 0.3 mg/dL (0.0-1.0) ALKALINE PHOSPHATASE 77 U/L (46-116) AST (SGOT) 13 L U/L (15-37) ALT (SGPT) 22 U/L (12-78) LIPASE 228 U/L (73-393) AMYLASE 93 U/L (25-115) . PROGRESS AND PROCEDURES Course of Care: Patient is stable. Patient/family counseled. Old medical records ordered. Disposition: Discharged. Condition: stable. CLINICAL IMPRESSION Back pain. Acute urinary tract infection. Constipation INSTRUCTIONS Limit lifting. Warnings: GENERAL WARNINGS: Return or contact your physician immediately if your condition worsens or changes unexpectedly, if not improving as expected, or if other problems arise. Prescription Medications: Cipro 500 mg: take 1 tab orally every 12 hours for 10 days. Dispense twenty (20). No refills. Substitution is permissible. Diclofenac 50 mg tablets: Take 1 tablet orally every 8 hours as needed. Dispense thirty (30). No refills. OTC Medications: Magnesium Citrate (10-oz bottle) (available over the counter): take 1/2 bottle to achieve bowel movement. Repeat after 4 hours if needed. Understanding of the discharge instructions verbalized by patient. Follow-up with: [facility], , , [address], , [place], [address] Follow up today. Call for an appointment. (Electronically signed by Jax Polanco MD 05/19/2016 15:52)
--- NOTE | 2016-05-15 02:17 | ED ORDER SUMMARY ---
..... 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) (1:15 RCollier R.N.) Amylase Urgent (00:49 05/15/2016 Hermelinda ROJAS) (Ack 0:55 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) (1:03 JQuivey R.N.) Lipase Urgent (00:49 05/15/2016 Hermelinda ROJAS) (Ack 0:55 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 (14:14 05/15/2016)] [Electronically signed by Jax Polanco MD (15:52 05/19/2016)] [Electronically locked/signed by Radha Lopez R.N. (14:14 05/15/2016)]
--- NOTE | 2016-05-19 15:52 | ED MAR SUMMARY ---
..... Medication Administration Record [facility] [address] [place] [address] Patient: FINN HUNTER Visit ID: [id number] 35y, F Weight: 63.5 kg Height/Length: 69 in BMI: 20.7 ALLERGIES: Vicoden Start 01:01 05/15/2016 Chucho Marcus RElizabet Medication Administered: IV NS (SALINE), Dose: IV Fluids over 30 minute(s), Rate: 1000 mL/hr, Dispensed: 1000 mL bag, Site: #1 right AC. Medication Ordered: IV NS : initial bolus 500 mL (1000 mL/hr), then 125 mL/hr for 4h (NOW); Urgent. Given 02:06 05/15/2016 Kacey Wiseman RJorgeN. Medication Administered: TORADOL [IVP], Dose: 30 mg IVP over 30 second(s), Site: #1 right AC. Medication Ordered: Toradol IV 30 mg (NOW).
--- NOTE | 2016-05-19 15:52 | ED MAR SUMMARY ---
..... Medication Administration Record [facility] [address] [place] [address] Patient: FINN HUNTER Visit ID: [id number] 35y, F Weight: 63.5 kg Height/Length: 69 in BMI: 20.7 ALLERGIES: Vicoden Start 01:01 05/15/2016 Chucho Marcus RElizabet Medication Administered: IV NS (SALINE), Dose: IV Fluids over 30 minute(s), Rate: 1000 mL/hr, Dispensed: 1000 mL bag, Site: #1 right AC. Medication Ordered: IV NS : initial bolus 500 mL (1000 mL/hr), then 125 mL/hr for 4h (NOW); Urgent. Given 02:06 05/15/2016 Kacey Wiseman RJorgeN. Medication Administered: TORADOL [IVP], Dose: 30 mg IVP over 30 second(s), Site: #1 right AC. Medication Ordered: Toradol IV 30 mg (NOW).
--- NOTE | 2016-05-19 15:52 | ED DISCHARGE INSTRUCTIONS ---
Patient: FINN HUNTER General Instructions [facility] VisitID: [id number] [address] [place] [address] 35y, F Registration Date/Time: 05/15/2016 Back pain. Acute urinary tract infection. Constipation INSTRUCTIONS Limit lifting. Warnings: GENERAL WARNINGS: Return or contact your physician immediately if your condition worsens or changes unexpectedly, if not improving as expected, or if other problems arise. Prescription Medications: Cipro 500 mg: take 1 tab orally every 12 hours for 10 days. Dispense twenty (20). No refills. Substitution is permissible. Diclofenac 50 mg tablets: Take 1 tablet orally every 8 hours as needed. Dispense thirty (30). No refills. OTC Medications: Magnesium Citrate (10-oz bottle) (available over the counter): take 1/2 bottle to achieve bowel movement. Repeat after 4 hours if needed. Understanding of the discharge instructions verbalized by patient. Follow-up with: [facility], , , [address], , [place], [id number] Follow up today. Call for an appointment. ADDITIONAL INFORMATION Back Pain [Acute Or Chronic] Back pain is usually caused by an injury to the muscles or ligaments of the spine. Sometimes the disks that separate each bone in the spine may bulge and cause pain by pressing on a nearby nerve. Back pain may also appear after a sudden twisting/bending force (such as in a car accident), after a simple awkward movement, or lifting something heavy with poor body positioning. In either case, muscle spasm is often present and adds to the pain. Acute back pain usually gets better in one to two weeks. Back pain related to disk disease, arthritis in the spinal joints or spinal stenosis (narrowing of the spinal canal) can become chronic and last for months or years. Unless you had a physical injury (for example, a car accident or fall) X-rays are usually not ordered for the initial evaluation of back pain. If pain continues and does not respond to medical treatment, x-rays and other tests may be performed at a later time. Home Care: You may need to stay in bed the first few days. But, as soon as possible, begin sitting or walking to avoid problems with prolonged bed rest (muscle weakness, worsening back stiffness and pain, blood clots in the legs). When in bed, try to find a position of comfort. A firm mattress is best. Try lying flat on your back with pillows under your knees. You can also try lying on your side with your knees bent up towards your chest and a pillow between your knees. Avoid prolonged sitting. This puts more stress on the lower back than standing or walking. During the first two days after injury, apply an ICE PACK to the painful area for 20 minutes every 2-4 hours. This will reduce swelling and pain. HEAT (hot shower, hot bath or heating pad) works well for muscle spasm. You can start with ice, then switch to heat after two days. Some patients feel best alternating ice and heat treatments. Use the one method that feels the best to you. You may use acetaminophen (Tylenol) or ibuprofen (Motrin, Advil) to control pain, unless another pain medicine was prescribed. [NOTE: If you have chronic liver or kidney disease or ever had a stomach ulcer or GI bleeding, talk with your doctor before using these medicines.] Be aware of safe lifting methods and do not lift anything over 15 pounds until all the pain is gone. Follow Up with your doctor or this facility if your symptoms do not start to improve after one week. Physical therapy may be needed. [NOTE: If X-rays were taken, they will be reviewed by a radiologist. You will be notified of any new findings that may affect your care.] Get Prompt Medical Attention if any of the following occur: Pain becomes worse or spreads to your legs Weakness or numbness in one or both legs Loss of bowel or bladder control Numbness in the groin or genital area Bladder Infection,Female (Adult) A bladder infection ("cystitis" or "UTI") usually causes a constant urge to urinate and a burning when passing urine. Urine may be cloudy, smelly or dark. There may be pain in the lower abdomen. A bladder infection occurs when bacteria from the vaginal area enter the bladder opening (urethra). This can occur from sexual intercourse, wearing tight clothing, dehydration and other factors. Home Care: Drink lots of fluids (at least 6-8 glasses a day, unless you must restrict fluids for other medical reasons). This will force the medicine into your urinary system and flush the bacteria out of your body. Avoid sexual intercourse until your symptoms are gone. Avoid caffeine, alcohol and spicy foods. These can irritate the bladder. A bladder infection is treated with antibiotics. You may also be given Pyridium (generic = phenazopyridine) to reduce the burning sensation. This medicine will cause your urine to become a bright orange color. The orange urine may stain clothing. You may wear a pad or panty-liner to protect clothing. Preventing Future Infections: Always wipe from front to back after a bowel movement. Keep the genital area clean and dry. Drink plenty of fluids each day to avoid dehydration. Both sexual partners should wash before intercourse. Urinate right after intercourse to flush out the bladder. Wear cotton underwear and cotton-lined panty hose; avoid tight-fitting pants. If you are on control pills and are having frequent bladder infections, discuss with your doctor. Follow Up: Return to this facility or see your doctor if ALL symptoms are not gone after three days of treatment. Get Prompt Medical Attention if any of the following occur: Fever of 100.4F (38C) or higher, or as directed by your healthcare provider No improvement by the third day of treatment Increasing back or abdominal pain Repeated vomiting; unable to keep medicine down Weakness, dizziness or fainting Vaginal discharge Pain, redness or swelling in the labia (outer vaginal area) Constipation (Adult) Constipation is bowel movements that are less frequent than usual. Stools often become very hard and difficult to pass. This may lead to abdominal pain and bloating. It may also cause painful bowel movements. Constipation may be due to a diet thats low in fiber. Some medications, especially pain medications, can also cause it. Constipation may be treated with enemas, suppositories, laxatives or stool softeners. Your doctor will advise you which will work best for you. Follow the advice below to help avoid this problem in the future. Home Care Medication: Take any medicines as directed. Some laxatives are safe only for occasional use. Others can be taken on a regular basis. Talk to your doctor or pharmacist if you have questions. General Care: Prescription pain medications can cause constipation. If you are prescribed pain medications, ask the doctor whether you should also take a stool softener. A diet high in fiber with plenty of fluids helps to maintain regular, soft bowel movements. The following foods are good sources of dietary fiber: Cereals and breads: Whole grain cereal with bran, oatmeal, rolled oats, whole grain breads Fruits: All fruits (fresh and dried), raisins, prunes, apricots, berries, figs Vegetables: Any fresh vegetables, especially peas, broccoli, brussels sprouts, winter squash, green beans, cauliflower, gibson beans, carrots Other: Popcorn, brown rice Drink plenty of water when you increase the amount of fiber you eat. Follow Up with your doctor or return to this facility if symptoms do not improve in the next few days. You may require further tests or a referral to a specialist. Get Prompt Medical Attention if any of the following occur: Fever over 100.4F (38C) Failure to resume normal bowel movements Increasing abdominal or back pain Nausea or vomiting Abdominal swelling Blood in the stool Weakness, dizziness or fainting Unexpected vaginal bleeding Ciprofloxacin Hydrochloride Oral tablet What is this medicine? CIPROFLOXACIN (sip adebayo FLOX a sin) is a quinolone antibiotic. It is used to treat certain kinds of bacterial infections. It will not work for colds, flu, or other viral infections. How should I use this medicine? Take this medicine by mouth with a glass of water. Follow the directions on the prescription label. Take your medicine at regular intervals. Do not take your medicine more often than directed. Take all of your medicine as directed even if you think your are better. Do not skip doses or stop your medicine early. You can take this medicine with food or on an empty stomach. It can be taken with a meal that contains dairy or calcium, but do not take it alone with a dairy product, like milk or yogurt or calcium-fortified juice. A special MedGuide will be given to you by the pharmacist with each prescription and refill. Be sure to read this information carefully each time. Talk to your jigger operator regarding the use of this medicine in children. Special care may be needed. What side effects may I notice from receiving this medicine? Side effects that you should report to your doctor or health care management coordinator as soon as possible: - allergic reactions like skin rash, itching or hives, swelling of the face, lips, or tongue - breathing problems - confusion, nightmares or hallucinations - feeling faint or lightheaded, falls - irregular heartbeat - joint, muscle or tendon pain or swelling - pain or trouble passing urine -persistent headache with or without blurred vision - redness, blistering, peeling or loosening of the skin, including inside the mouth - seizure - unusual pain, numbness, tingling, or weakness Side effects that usually do not require medical attention (report to your doctor or health care management coordinator if they continue or are bothersome): - diarrhea - nausea or stomach upset - white patches or sores in the mouth What may interact with this medicine? Do not take this medicine with any of the following medications: cisapride droperidol terfenadine tizanidine This medicine may also interact with the following medications: antacids caffeine cyclosporin didanosine (ddI) buffered tablets or powder medicines for diabetes medicines for inflammation like ibuprofen, naproxen methotrexate multivitamins omeprazole phenytoin probenecid sucralfate theophylline warfarin What if I miss a dose? If you miss a dose, take it as soon as you can. If it is almost time for your next dose, take only that dose. Do not take double or extra doses. Where should I keep my medicine? Keep out of the reach of children. Store at room temperature below 30 degrees C (86 degrees F). Keep container tightly closed. Throw away any unused medicine after the expiration date. What should I tell my health care provider before I take this medicine? They need to know if you have any of these conditions: -bone problems -cerebral disease -joint problems -irregular heartbeat -kidney disease -liver disease -myasthenia gravis -seizure disorder -tendon problems -an unusual or allergic reaction to ciprofloxacin, other antibiotics or medicines, foods, dyes, or preservatives - or trying to get -breast-feeding What should I watch for while using this medicine? Tell your doctor or health care management coordinator if your symptoms do not improve. Do not treat diarrhea with over the counter products. Contact your doctor if you have diarrhea that lasts more than 2 days or if it is severe and watery. You may get drowsy or dizzy. Do not drive, use machinery, or do anything that needs mental alertness until you know how this medicine affects you. Do not stand or sit up quickly, especially if you are an older patient. This reduces the risk of dizzy or fainting spells. This medicine can make you more sensitive to the sun. Keep out of the sun. If you cannot avoid being in the sun, wear protective clothing and use sunscreen. Do not use sun lamps or tanning beds/booths. Avoid antacids, aluminum, calcium, iron, magnesium, and zinc products for 6 hours before and 2 hours after taking a dose of this medicine. You have been given the following additional information: Back Pain (Acute Or Chronic) Bladder Infection, Female (Adult) Constipation (Adult) Ciprofloxacin Hydrochloride Oral tablet Limit lifting. (Electronically signed by Jax Polanco MD 05/19/2016 15:52)
--- NOTE | 2016-05-19 15:52 | ED MED RECONCILIATION SUMMARY ---
Patient: FINN HUNTER Medication Reconciliation Report [facility] VisitID: [id number] [address] [place] [address] 35y, F Registration Date/Time: 05/15/2016 Weight: 63.5 kg Height/Length: 69 in. BMI: 20.7 ALLERGIES: Vicoden The patient's Home Medications are listed below: NONE. The source(s) of the original Home Medication information: Not obtained. The following Medications were given to the patient in the Emergency Department: IV NS IV Fluids bolus 0, then 1000 mL/hr, administered: 05/15/2016 1:01:00 AM Toradol [IVP] IVP 30 mg, administered: 05/15/2016 2:06:00 AM The following Medications were prescribed to the patient: Cipro 500 mg: take 1 tab orally every 12 hours for 10 days. Dispense twenty (20). No refills. Substitution is permissible. -- Jax Polanco MD Magnesium Citrate (10-oz bottle) (available over the counter): take 1/2 bottle to achieve bowel movement. Repeat after 4 hours if needed. -- Jax Polanco MD Diclofenac 50 mg tablets: Take 1 tablet orally every 8 hours as needed. Dispense thirty (30). No refills. -- Jax Polanco MD
--- NOTE | 2016-05-19 15:52 | ED MED RECONCILIATION SUMMARY ---
Patient: FINN HUNTER Medication Reconciliation Report [facility] VisitID: [id number] [address] [place] [address] 35y, F Registration Date/Time: 05/15/2016 Weight: 63.5 kg Height/Length: 69 in. BMI: 20.7 ALLERGIES: Vicoden The patient's Home Medications are listed below: NONE. The source(s) of the original Home Medication information: Not obtained. The following Medications were given to the patient in the Emergency Department: IV NS IV Fluids bolus 0, then 1000 mL/hr, administered: 05/15/2016 1:01:00 AM Toradol [IVP] IVP 30 mg, administered: 05/15/2016 2:06:00 AM The following Medications were prescribed to the patient: Cipro 500 mg: take 1 tab orally every 12 hours for 10 days. Dispense twenty (20). No refills. Substitution is permissible. -- Jax Polanco MD Magnesium Citrate (10-oz bottle) (available over the counter): take 1/2 bottle to achieve bowel movement. Repeat after 4 hours if needed. -- Jax Polanco MD Diclofenac 50 mg tablets: Take 1 tablet orally every 8 hours as needed. Dispense thirty (30). No refills. -- Jax Polanco MD
== END 2016-05-15 07:59 | disposition home or self-care (01) ==
LOC: ED SRH 00:44
DX: N39.0 Urinary tract infection, site not specified (principal); K59.00 Constipation, unspecified; M54.5 Low back pain; F17.210 Nicotine dependence, cigarettes, uncomplicated; I10 Essential (primary) hypertension; Z88.5 Allergy status to narcotic agent
CPT/HCPCS: 81460; 90004; 90100; 90148; 90469; 92235; 92530; 93070; 95059

== ENCOUNTER 2016-06-14 20:39 | Emergency (ER) | payer OTHER ==
--- NOTE | 2016-06-14 21:07 | ED NURSING NOTES ---
Clinical Report - Nurses [facility] [address] [place] [address] 06/14/2016 20:41 Patient: FINN HUNTER TRIAGE Triage time 2049 PM. Chief Complaint: RIGHT LOWER and LEFT LOWER TOOTHACHE and SWELLING OF JAW / FACE. Alert. No acute distress. --20:57 Lacho Sarkar R.N. 20:48 06/14/16. BP: 166/109. HR: 100. RR: 16. O2 saturation: 100%. Temp: 98.2 F (oral). Pain level now: 0/10. --20:57 Lacho Sarkar R.N. Weight: 68 kg stated. Height/Length: 69 inches Per Patient. BMI: 22.2. --20:51 Lacho Sarkar R.N. Medications None. --20:53 Lacho Sarkar R.N. Allergies Vicoden.(itching) --20:53 Lacho Sarkar R.N. History Arrived by private vehicle. Historian: patient. Accompanied by family. Onset. (about 3 days ago). ( Patient presents to the ED with symptoms of right sided dental/jaw pain. Patient states that she gets recurrent dental abscesses states the pain started on her right side and then migrated to the left side. Patient also complains of mild left sided chest pain and shortness of breath and nausea beginning approximately 1/2 hour ago.). She has had moderate left ear pain radiating to the jaw. Reports enlarged lymph nodes. She has had swelling of the jaw. SOCIAL HX: Current every day light tobacco smoker (cigarette)- less than 1/2 a pack per day. Occasional alcohol use. History of occasional drug use: methamphetamines, marijuana. Recently used drugs days ago. FALL RISK ASSESSMENT: Fall risk assessment completed. No fall risk identified. NUTRITIONAL RISK ASSESSMENT: The nutritional risk assessment revealed no deficiencies. FUNCTIONAL ASSESSMENT: Functional assessment: no impairments noted. LEARNING NEEDS ASSESSMENT: The learning needs assessment revealed no barriers. SKIN INTEGRITY ASSESSMENT: Skin integrity risk assessment completed. No skin integrity risk identified. --20:57 Lacho Sarkar R.N. PROBLEMS: Back Pain. Constipation. UTI - Urinary Tract Infection. Lumbar Strain. Dislocated Wrist. Prior Injury, Same Area. Muscle Spasm. Tendonitis. Cervical Radiculopathy. Hypertension. Abrasion(s). Contusion. Immunizations. LNMP - Last Normal Menstrual Period. Uterine Fibroid. Cervical Dysplasia. Ovarian Cyst. --20:53 Lacho Sarkar R.N. Hypertension [Resolved]. --20:53 Lacho Sarkar R.N. ADDITIONAL SURGERIES: . Laparoscopy. --20:53 Lacho Sarkar R.N. Interventions ID band on patient. --20:57 Lacho Sarkar R.N. PHYSICAL ASSESSMENT Ambulatory to room. GENERAL / NEURO / PSYCH: Alert. Oriented X 4. Appears in no acute distress. HEENT: Pupils equal, round and reactive to light. Pharynx within normal limits. Voice within normal limits. Mouth ulceration present. Dental tenderness. Dental decay. Mucous membranes are pink. RESPIRATORY: Respirations not labored. CVS: Capillary refill less than 2 seconds. SKIN: Skin is warm and dry. Normal skin turgor. --21:06 Lacho Sarkar R.N. NURSING PROGRESS NOTES Call light placed in reach. Side rails up x 2. Bed placed in lowest position. Brakes of bed on. --21:06 Lacho Sarkar R.N. late entry -21:09. EKG time: (2109 PM). EKG was performed by a nurse and shown to the ED physician and DEVELOPMENT AND HOUSING DIRECTOR. --21:37 Lacho Sarkar R.N. DISPOSITION / DISCHARGE 21:24 06/14/16. Condition at departure: stable. No learning barriers present. Discharge instructions provided and reviewed with the patient. Reviewed medication(s) side effects, precautions, dosing and course information. Prescription(s) given to the patient. Reviewed need for increased fluid intake. Patient verbalized understanding. Written instructions provided in Greek. ( Follow up with Dentist in three days. You may swish with warm salt water. Reviewed Allergic reaction symptoms to antibiotics. Patient had no questions.). The patient was discharged by the nurse practitioner. She was discharged home and accompanied by investment fund manager. She left the Emergency Department ambulatory and via private vehicle. Machine Sand Mixer driving. --21:24 Cassie Ayers 21:22 06/14/16. BP: 150/100. HR: 100. RR: 20. O2 saturation: 98% on room air. Temp: 98 F (oral). Pain level now: 06/28. --21:24 Cassie Ayers. Locked/Released at 06/14/2016 21:37 by Lacho Sarkar R.N.
--- NOTE | 2016-06-14 21:07 | ED NURSING NOTES ---
Clinical Report - Nurses [facility] [address] [place] [address] 06/14/2016 20:41 Patient: FINN HUNTER TRIAGE Triage time 2049 PM. Chief Complaint: RIGHT LOWER and LEFT LOWER TOOTHACHE and SWELLING OF JAW / FACE. Alert. No acute distress. --20:57 Lacho Sarkar R.N. 20:48 06/14/16. BP: 166/109. HR: 100. RR: 16. O2 saturation: 100%. Temp: 98.2 F (oral). Pain level now: 0/10. --20:57 Lacho Sarkar R.N. Weight: 68 kg stated. Height/Length: 69 inches Per Patient. BMI: 22.2. --20:51 Lacho Sarkar R.N. Medications None. --20:53 Lacho Sarkar R.N. Allergies Vicoden.(itching) --20:53 Lacho Sarkar R.N. History Arrived by private vehicle. Historian: patient. Accompanied by family. Onset. (about 3 days ago). ( Patient presents to the ED with symptoms of right sided dental/jaw pain. Patient states that she gets recurrent dental abscesses states the pain started on her right side and then migrated to the left side. Patient also complains of mild left sided chest pain and shortness of breath and nausea beginning approximately 1/2 hour ago.). She has had moderate left ear pain radiating to the jaw. Reports enlarged lymph nodes. She has had swelling of the jaw. SOCIAL HX: Current every day light tobacco smoker (cigarette)- less than 1/2 a pack per day. Occasional alcohol use. History of occasional drug use: methamphetamines, marijuana. Recently used drugs days ago. FALL RISK ASSESSMENT: Fall risk assessment completed. No fall risk identified. NUTRITIONAL RISK ASSESSMENT: The nutritional risk assessment revealed no deficiencies. FUNCTIONAL ASSESSMENT: Functional assessment: no impairments noted. LEARNING NEEDS ASSESSMENT: The learning needs assessment revealed no barriers. SKIN INTEGRITY ASSESSMENT: Skin integrity risk assessment completed. No skin integrity risk identified. --20:57 Lacho Sarkar R.N. PROBLEMS: Back Pain. Constipation. UTI - Urinary Tract Infection. Lumbar Strain. Dislocated Wrist. Prior Injury, Same Area. Muscle Spasm. Tendonitis. Cervical Radiculopathy. Hypertension. Abrasion(s). Contusion. Immunizations. LNMP - Last Normal Menstrual Period. Uterine Fibroid. Cervical Dysplasia. Ovarian Cyst. --20:53 Lacho Sarkar R.N. Hypertension [Resolved]. --20:53 Lacho Sarkar R.N. ADDITIONAL SURGERIES: . Laparoscopy. --20:53 Lacho Sarkar R.N. Interventions ID band on patient. --20:57 Lacho Sarkar R.N. PHYSICAL ASSESSMENT Ambulatory to room. GENERAL / NEURO / PSYCH: Alert. Oriented X 4. Appears in no acute distress. HEENT: Pupils equal, round and reactive to light. Pharynx within normal limits. Voice within normal limits. Mouth ulceration present. Dental tenderness. Dental decay. Mucous membranes are pink. RESPIRATORY: Respirations not labored. CVS: Capillary refill less than 2 seconds. SKIN: Skin is warm and dry. Normal skin turgor. --21:06 Lacho Sarkar R.N. NURSING PROGRESS NOTES Call light placed in reach. Side rails up x 2. Bed placed in lowest position. Brakes of bed on. --21:06 Lacho Sarkar R.N. late entry -21:09. EKG time: (2109 PM). EKG was performed by a nurse and shown to the ED physician and WOOD SKI MAKER. --21:37 Lacho Sarkar R.N. DISPOSITION / DISCHARGE 21:24 06/14/16. Condition at departure: stable. No learning barriers present. Discharge instructions provided and reviewed with the patient. Reviewed medication(s) side effects, precautions, dosing and course information. Prescription(s) given to the patient. Reviewed need for increased fluid intake. Patient verbalized understanding. Written instructions provided in [place] [employer]. ( Follow up with Dentist in three days. You may swish with warm salt water. Reviewed Allergic reaction symptoms to antibiotics. Patient had no questions.). The patient was discharged by the nurse practitioner. She was discharged home and accompanied by template fitter. She left the Emergency Department ambulatory and via private vehicle. Resizer Operator driving. --21:24 Cassie Ayers 21:22 06/14/16. BP: 150/100. HR: 100. RR: 20. O2 saturation: 98% on room air. Temp: 98 F (oral). Pain level now: 06/28. --21:24 Cassie Ayers. Locked/Released at 06/14/2016 21:37 by Lacho Sarkar R.N.
--- NOTE | 2016-06-14 21:07 | ED CLINICAL REPORT ---
Clinical Report - Physicians/Mid Levels [facility] [address] [place] [address] 06/14/2016 20:41 Patient: FINN HUNTER Time Seen: 20:52; upon arrival, initial patient contact, initial documentation, patient care assumed. Arrived- By private vehicle. Historian- patient. HISTORY OF PRESENT ILLNESS Chief Complaint: DENTAL PAIN. SWELLING OF JAW / FACE. This started yesterday and is still present. Pain described as mild. No sore throat, mouth sores, nasal discharge or congestion or ear pain. No swollen face or facial pain. She has had mild toothache involving multiple teeth. She has had moderate swelling of the right and left jaw. She has had jaw pain. (states every tooth is bad, and she does not have a dentist). Similar symptoms previously: Chronically, milder. Recent medical care: Not recently seen/assessed. REVIEW OF SYSTEMS All systems otherwise negative, except as recorded above. PAST HISTORY See nurses notes. PROBLEMS: Back Pain. Constipation. UTI - Urinary Tract Infection. Lumbar Strain. Dislocated Wrist. Prior Injury, Same Area. Muscle Spasm. Tendonitis. Cervical Radiculopathy. Hypertension. Abrasion(s). Contusion. Immunizations. LNMP - Last Normal Menstrual Period. Uterine Fibroid. Cervical Dysplasia. Ovarian Cyst. --20:53 Lacho Sarkar R.N. Hypertension [Resolved]. --20:53 Lacho Sarkar RJorgeN. ADDITIONAL SURGERIES: . Laparoscopy. --20:53 Lacho Sarkar R.N. SOCIAL HISTORY Light tobacco smoker. Occasional alcohol use. History of heavy drug use: methamphetamines. Recently used drugs. No recent travel. Is a local resident. FAMILY HISTORY Negative. ADDITIONAL NOTES The nursing notes have been reviewed with agreement regarding the chief complaint, HPI, ROS, PMH and patient medications and allergies. PHYSICAL EXAM Vital Signs: 06/14/2016 20:48 BP: 166/109. HR: 100. RR: 16. O2 saturation: 100%. Temp: 98.2 F. Pain level now: 0/10. Have been reviewed as abnormal and appear to be correct. Hypertensive. Heart rate normal. Respiratory rate normal. Temperature normal. Oxygen saturation normal. Appearance: Alert. No acute distress. Head: Normal external inspection. Eyes: Pupils equal, round and reactive to light. Conjunctivae and eyelids normal. ENT: Severe, extensive dental decay (every tooth affected either with decay, broken or both, lower molars broken off at gum line). No gingival tenderness, induration, swelling or fluctuance. Ears normal. Nose normal. Pharynx normal. Lips normal. Gums normal. No trismus present. Uvula midline. Neck: Lymphadenopathy. Normal inspection. Mild right submandibular and mild left submandibular lymphadenopathy present. Trachea midline. Thyroid normal. Neck supple. Respiratory: No respiratory distress. Skin: Normal skin color. No rash. Normal skin turgor. Extremities: Extremities exhibit normal ROM. Extremities nontender. Neuro: Oriented X 3. No motor deficit. No sensory deficit. LABS, X-RAYS, AND EKG EKG: EKG time: (2105). No acute process. No acute ischemia. Normal EKG. Rate: 83. Normal EKG. The study has been interpreted contemporaneously by me (and dr gurrola). The EKG appears to be a good tracing. Interpretation time: 2105. PROGRESS AND PROCEDURES Course of Care: nurse saying she would like to do ekg because pt told her that her chest hurt. Patient counseled in person regarding the patient's stable condition and diagnosis. 21:07. Differential Diagnosis: Other possible considerations: substance abuse, dental abscess, pain, caries, lymphoma. Above considerations are based on history and physical exam. Differential diagnosis was discussed with patient. Disposition: Discharged home in good and unchanged condition (21:07). Condition: good and stable. CLINICAL IMPRESSION Dental caries (extensive decay) INSTRUCTIONS Warnings: GENERAL WARNINGS: Return or contact your physician immediately if your condition worsens or changes unexpectedly, if not improving as expected, or if other problems arise. Specifically return if problem worsens. Prescription Medications: Tylenol with Codeine Tylenol #3 (30 mg / 300 mg) : take 1 tablet orally every 6 hours as needed for pain. Dispense five (5). No refill. Penicillin V 500mg: take 1 tab orally every 6 hours for 10 days. Dispense forty (40). No refill Follow-up: Follow up with a dentist in about three days even if well. Call for an appointment. Summary of care provided to patient. Understanding of the discharge instructions verbalized by patient. (Electronically signed by Cait Sheikh A.R.N.P. 06/14/2016 21:27)
--- NOTE | 2016-06-14 21:37 | ED DISCHARGE INSTRUCTIONS ---
Patient: FINN HUNTER General Instructions [facility] VisitID: [id number] [place] [address] 35y, F Registration Date/Time: 06/14/2016 Dental caries (extensive decay) INSTRUCTIONS Warnings: GENERAL WARNINGS: Return or contact your physician immediately if your condition worsens or changes unexpectedly, if not improving as expected, or if other problems arise. Specifically return if problem worsens. Prescription Medications: Tylenol with Codeine Tylenol #3 (30 mg / 300 mg) : take 1 tablet orally every 6 hours as needed for pain. Dispense five (5). No refill. Penicillin V 500mg: take 1 tab orally every 6 hours for 10 days. Dispense forty (40). No refill Follow-up: Follow up with a dentist in about three days even if well. Call for an appointment. Summary of care provided to patient. Understanding of the discharge instructions verbalized by patient. ADDITIONAL INFORMATION Dental Cavity A dental cavity is a pit or crater in the enamel surface of the tooth. This exposes the sensitive inner layer of the tooth and causes pain. If untreated, the cavity will get bigger and may cause an infection or abscess in the root of the tooth. An infection in the tooth is a much more serious problem and may require a root canal or removal of the entire tooth. The tooth pain may be made worse by drinking hot or cold fluids. It may spread from the tooth to the ear or jaw on the same side. Home Care: Avoid hot and cold foods, and liquids since your tooth may be sensitive to temperature changes. If your tooth is chipped or cracked, or if there is a large open cavity, apply OIL OF CLOVES (available dnhj-dcr-suuepxi in drug stores) directly to the tooth to reduce pain. Some pharmacies carry an [id number]-[id number] "toothache kit." This contains oil of cloves and a paste, which can be applied over the exposed tooth to decrease sensitivity. An ice pack on your jaw over the sore area may help to reduce pain. You may use acetaminophen (Tylenol) or ibuprofen (Motrin, Advil) to control pain, unless another pain medicine was prescribed. [ NOTE: If you have liver disease or ever had a stomach ulcer, talk with your doctor before using these medicines.] If you have signs of an infection, an antibiotic will be given. Take it as directed. Follow-Up with your dentist as directed. Although your pain may go away with the treatment given, only a dentist can fully evaluate and treat this problem to prevent further tooth damage. Get Prompt Medical Attention if any of the following occur: Redness or swelling of the face Pain worsens or spreads to the neck Fever over 100.5 F (38C) Unusual drowsiness; headache or stiff neck; weakness or fainting Pus drains from the tooth or gum Difficulty swallowing or breathing Dental Pain A crack or cavity in the tooth, which exposes the sensitive inner area of the tooth can cause tooth pain. An infection in the gum or the root of the tooth can cause pain and swelling. The pain is often made worse by drinking hot or cold fluids, or biting on hard foods. Pain may spread from the tooth to the ear or jaw on the same side. Home Care: Avoid hot and cold foods and liquids since your tooth may be sensitive to temperature changes. If your tooth is chipped or cracked, or if there is a large open cavity, apply OIL OF CLOVES (available xiic-ast-shdnzmj in drug stores) directly to the tooth to reduce pain. Some pharmacies carry an rghq-imp-zzbtkkj "toothache kit." This contains a paste, which can be applied over the exposed tooth to decrease sensitivity. A cold pack on your jaw over the sore area may help reduce pain. You may use acetaminophen (Tylenol) or ibuprofen (Motrin, Advil) to control pain, unless another medicine was prescribed. [ NOTE: If you have chronic liver or kidney disease or ever had a stomach ulcer or GI bleeding, talk with your doctor before using these medicines.] If you have signs of an infection, an antibiotic will be given. Take it as directed. Follow-Up as directed with a dentist. Your pain may go away with the treatment given. However, only a dentist can fully evaluate and treat the cause and prevent the pain from coming back again. TOOTHACHE IS A SIGN OF DISEASE IN YOUR TOOTH AND SHOULD BE EXAMINED AND TREATED BY A DENTIST. Get Prompt Medical Attention if any of the following occur: Your face becomes swollen or red Pain worsens or spreads to the neck Fever over 100.4 F (38.0 C) Unusual drowsiness; headache or stiff neck; weakness or fainting Pus drains from the tooth Difficulty swallowing or breathing Acetaminophen, Codeine Phosphate Oral tablet What is this medicine? ACETAMINOPHEN; CODEINE (a set a GINA [place]is [place]; SHAN gates) is a pain reliever. It is used to treat mild to moderate pain. How should I use this medicine? Take this medicine by mouth with a full glass of water. Follow the directions on the prescription label. If the medicine upsets your stomach, take the medicine with food or milk. Do not take more medicine than you are told to take. Talk to your electrical electronics engineer regarding the use of this medicine in children. Special care may be needed. What side effects may I notice from receiving this medicine? Side effects that you should report to your doctor or health daycare teacher as soon as possible: allergic reactions like skin rash, itching or hives, swelling of the face, lips, or tongue breathing difficulties, wheezing confusion light headedness or fainting spells severe stomach pain yellowing of the skin or the whites of the eyes Side effects that usually do not require medical attention (report to your doctor or health daycare teacher if they continue or are bothersome): dizziness drowsiness nausea, vomiting What may interact with this medicine? alcohol antihistamines benztropine drugs for bladder problems like solifenacin, trospium, oxybutynin, tolterodine, hycosamine, and methscopolamine drugs for breathing problems like ipratropium and tiotropium drugs for certain stomach or intestine problems like propantheline, homatropine methylbromide, glycopyrrolate, atropine, belladonna, and dicyclomine medicines for depression, anxiety, or psychotic disturbances medicines for sleep muscle relaxants naltrexone narcotic medicines (opiates) for pain phenothiazines like perphenazine, thioridazine, chlorpromazine, mesoridazine, fluphenazine, prochlorperazine, promazine, trifluoperazine scopolamine tramadol trihexyphenidyl What if I miss a dose? If you miss a dose, take it as soon as you can. If it is almost time for your next dose, take only that dose. Do not take double or extra doses. Where should I keep my medicine? Keep out of the reach of children. This medicine can be abused. Keep your medicine in a safe place to protect it from theft. Do not share this medicine with anyone. Selling or giving away this medicine is dangerous and against the law. Store at room temperature between 15 and 30 degrees C (59 and 86 degrees F). Protect from light. Keep container tightly closed. Throw away any unused medicine after the expiration date. Discard unused medicine and used packaging carefully. Pets and children can be harmed if they find used or lost packages. What should I tell my health care provider before I take this medicine? They need to know if you have any of these conditions: brain tumor Crohn's disease, inflammatory bowel disease, or ulcerative colitis drink more than 3 alcohol containing drinks per day drug abuse or addiction head injury heart or circulation problems kidney disease or problems going to the bathroom liver disease lung disease, asthma, or breathing problems an unusual or allergic reaction to acetaminophen, codeine, salicylates, other opioid analgesics, other medicines, foods, dyes, or preservatives or trying to get breast-feeding What should I watch for while using this medicine? Tell your doctor or health daycare teacher if your pain does not go away, if it gets worse, or if you have new or a different type of pain. You may develop tolerance to the medication. Tolerance means that you will need a higher dose of the medication for pain relief. Tolerance is normal and is expected if you take the medicine for a long time. Do not suddenly stop taking your medicine because you may develop a severe reaction. Your body becomes used to the medicine. This does NOT mean you are addicted. Addiction is a behavior related to getting and using a drug for a non medical reason. If you have pain, you have a medical reason to take pain medicine. Your doctor will tell you how much medicine to take. If your doctor wants you to stop the medicine, the dose will be slowly lowered over time to avoid any side effects. You may get drowsy or dizzy. Do not drive, use machinery, or do anything that needs mental alertness until you know how this medicine affects you. Do not stand or sit up quickly, especially if you are an older patient. This reduces the risk of dizzy or fainting spells. Alcohol may interfere with the effect of this medicine. Avoid alcoholic drinks. There are different types of narcotic medicines (opiates) for pain. If you take more than one type at the same time, you may have more side effects. Give your health care provider a list of all medicines you use. Your doctor will tell you how much medicine to take. Do not take more medicine than directed. Call emergency for help if you have problems breathing. The medicine will cause constipation. Try to have a bowel movement at least every 2 to 3 days. If you do not have a bowel movement for 3 days, call your doctor or health daycare teacher. Do not take Tylenol (acetaminophen) or medicines that have acetaminophen with this medicine. Too much acetaminophen can be very dangerous. Many nonprescription medicines contain acetaminophen. Always read the labels carefully to avoid taking more acetaminophen. Immediately call your physician or get emergency help if you are breast-feeding and your baby is sleepier than usual, is limp, or has difficulty or breathing. Penicillin V Potassium Oral tablet What is this medicine? PENICILLIN V (pen i SILL in V) is a penicillin antibiotic. It is used to treat certain kinds of bacterial infections. It will not work for colds, flu, or other viral infections. How should I use this medicine? Take this medicine by mouth with a full glass of water. Follow the directions on the prescription label. Take your medicine at regular intervals. Do not take your medicine more often than directed. Take all of your medicine as directed even if you think your are better. Do not skip doses or stop your medicine early. Talk to your electrical electronics engineer regarding the use of this medicine in children. While this drug may be prescribed for selected conditions, precautions do apply. What side effects may I notice from receiving this medicine? Side effects that you should report to your doctor or health daycare teacher as soon as possible: allergic reactions like skin rash or hives, swelling of the face, lips, or tongue breathing problems fever new symptoms of infection redness, blistering, peeling or loosening of the skin, including inside the mouth unusually weak or tired Side effects that usually do not require medical attention (report to your doctor or health daycare teacher if they continue or are bothersome): diarrhea headache nausea, vomiting sore mouth or tongue stomach upset What may interact with this medicine? control pills methotrexate other antibiotics probenecid some vaccines What if I miss a dose? If you miss a dose, take it as soon as you can. If it is almost time for your next dose, take only that dose. Do not take double or extra doses. Where should I keep my medicine? Keep out of the reach of children. Store at room temperature between 15 and 30 degrees C (59 and 86 degrees F). Keep container tightly closed. Throw away any unused medicine after the expiration date. What should I tell my health care provider before I take this medicine? They need to know if you have any of these conditions: asthma bowel disease, like colitis eczema kidney disease an unusual or allergic reaction to penicillin, cephalosporins, other antibiotics or medicines, foods, tartrazine or other dyes, or preservatives or trying to get breast-feeding What should I watch for while using this medicine? Tell your doctor or health daycare teacher if your symptoms do not improve. Do not treat diarrhea with over the counter products. Contact your doctor if you have diarrhea that lasts more than 2 days or if it is severe and watery. If you have diabetes, you may get a false-positive result for sugar in your urine. Check with your doctor or health daycare teacher. control pills may not work properly while you are taking this medicine. Talk to your doctor about using an extra method of control. You have been given the following additional information: Dental Cavity Dental Pain Acetaminophen, Codeine Phosphate Oral tablet Penicillin V Potassium Oral tablet (Electronically signed by Cait Sheikh A.R.N.P. 06/14/2016 21:27)
--- NOTE | 2016-06-14 21:37 | ED DISCHARGE INSTRUCTIONS ---
Patient: FINN HUNTER General Instructions [facility] VisitID: [id number] [place] [address] 35y, F Registration Date/Time: 06/14/2016 Dental caries (extensive decay) INSTRUCTIONS Warnings: GENERAL WARNINGS: Return or contact your physician immediately if your condition worsens or changes unexpectedly, if not improving as expected, or if other problems arise. Specifically return if problem worsens. Prescription Medications: Tylenol with Codeine Tylenol #3 (30 mg / 300 mg) : take 1 tablet orally every 6 hours as needed for pain. Dispense five (5). No refill. Penicillin V 500mg: take 1 tab orally every 6 hours for 10 days. Dispense forty (40). No refill Follow-up: Follow up with a dentist in about three days even if well. Call for an appointment. Summary of care provided to patient. Understanding of the discharge instructions verbalized by patient. ADDITIONAL INFORMATION Dental Cavity A dental cavity is a pit or crater in the enamel surface of the tooth. This exposes the sensitive inner layer of the tooth and causes pain. If untreated, the cavity will get bigger and may cause an infection or abscess in the root of the tooth. An infection in the tooth is a much more serious problem and may require a root canal or removal of the entire tooth. The tooth pain may be made worse by drinking hot or cold fluids. It may spread from the tooth to the ear or jaw on the same side. Home Care: Avoid hot and cold foods, and liquids since your tooth may be sensitive to temperature changes. If your tooth is chipped or cracked, or if there is a large open cavity, apply OIL OF CLOVES (available hmlr-kjd-iprcxme in drug stores) directly to the tooth to reduce pain. Some pharmacies carry an tnqt-cxq-cvfoxjx "toothache kit." This contains oil of cloves and a paste, which can be applied over the exposed tooth to decrease sensitivity. An ice pack on your jaw over the sore area may help to reduce pain. You may use acetaminophen (Tylenol) or ibuprofen (Motrin, Advil) to control pain, unless another pain medicine was prescribed. [ NOTE: If you have liver disease or ever had a stomach ulcer, talk with your doctor before using these medicines.] If you have signs of an infection, an antibiotic will be given. Take it as directed. Follow-Up with your dentist as directed. Although your pain may go away with the treatment given, only a dentist can fully evaluate and treat this problem to prevent further tooth damage. Get Prompt Medical Attention if any of the following occur: Redness or swelling of the face Pain worsens or spreads to the neck Fever over 100.5 F (38C) Unusual drowsiness; headache or stiff neck; weakness or fainting Pus drains from the tooth or gum Difficulty swallowing or breathing Dental Pain A crack or cavity in the tooth, which exposes the sensitive inner area of the tooth can cause tooth pain. An infection in the gum or the root of the tooth can cause pain and swelling. The pain is often made worse by drinking hot or cold fluids, or biting on hard foods. Pain may spread from the tooth to the ear or jaw on the same side. Home Care: Avoid hot and cold foods and liquids since your tooth may be sensitive to temperature changes. If your tooth is chipped or cracked, or if there is a large open cavity, apply OIL OF CLOVES (available csrq-iun-nxpajxy in drug stores) directly to the tooth to reduce pain. Some pharmacies carry an pnud-byd-taqkrae "toothache kit." This contains a paste, which can be applied over the exposed tooth to decrease sensitivity. A cold pack on your jaw over the sore area may help reduce pain. You may use acetaminophen (Tylenol) or ibuprofen (Motrin, Advil) to control pain, unless another medicine was prescribed. [ NOTE: If you have chronic liver or kidney disease or ever had a stomach ulcer or GI bleeding, talk with your doctor before using these medicines.] If you have signs of an infection, an antibiotic will be given. Take it as directed. Follow-Up as directed with a dentist. Your pain may go away with the treatment given. However, only a dentist can fully evaluate and treat the cause and prevent the pain from coming back again. TOOTHACHE IS A SIGN OF DISEASE IN YOUR TOOTH AND SHOULD BE EXAMINED AND TREATED BY A DENTIST. Get Prompt Medical Attention if any of the following occur: Your face becomes swollen or red Pain worsens or spreads to the neck Fever over 100.4 F (38.0 C) Unusual drowsiness; headache or stiff neck; weakness or fainting Pus drains from the tooth Difficulty swallowing or breathing Acetaminophen, Codeine Phosphate Oral tablet What is this medicine? ACETAMINOPHEN; CODEINE (a set a GINA [place]is [place]; SHAN gates) is a pain reliever. It is used to treat mild to moderate pain. How should I use this medicine? Take this medicine by mouth with a full glass of water. Follow the directions on the prescription label. If the medicine upsets your stomach, take the medicine with food or milk. Do not take more medicine than you are told to take. Talk to your school transportation supervisor regarding the use of this medicine in children. Special care may be needed. What side effects may I notice from receiving this medicine? Side effects that you should report to your doctor or health manager care management as soon as possible: allergic reactions like skin rash, itching or hives, swelling of the face, lips, or tongue breathing difficulties, wheezing confusion light headedness or fainting spells severe stomach pain yellowing of the skin or the whites of the eyes Side effects that usually do not require medical attention (report to your doctor or health manager care management if they continue or are bothersome): dizziness drowsiness nausea, vomiting What may interact with this medicine? alcohol antihistamines benztropine drugs for bladder problems like solifenacin, trospium, oxybutynin, tolterodine, hycosamine, and methscopolamine drugs for breathing problems like ipratropium and tiotropium drugs for certain stomach or intestine problems like propantheline, homatropine methylbromide, glycopyrrolate, atropine, belladonna, and dicyclomine medicines for depression, anxiety, or psychotic disturbances medicines for sleep muscle relaxants naltrexone narcotic medicines (opiates) for pain phenothiazines like perphenazine, thioridazine, chlorpromazine, mesoridazine, fluphenazine, prochlorperazine, promazine, trifluoperazine scopolamine tramadol trihexyphenidyl What if I miss a dose? If you miss a dose, take it as soon as you can. If it is almost time for your next dose, take only that dose. Do not take double or extra doses. Where should I keep my medicine? Keep out of the reach of children. This medicine can be abused. Keep your medicine in a safe place to protect it from theft. Do not share this medicine with anyone. Selling or giving away this medicine is dangerous and against the law. Store at room temperature between 15 and 30 degrees C (59 and 86 degrees F). Protect from light. Keep container tightly closed. Throw away any unused medicine after the expiration date. Discard unused medicine and used packaging carefully. Pets and children can be harmed if they find used or lost packages. What should I tell my health care provider before I take this medicine? They need to know if you have any of these conditions: brain tumor Crohn's disease, inflammatory bowel disease, or ulcerative colitis drink more than 3 alcohol containing drinks per day drug abuse or addiction head injury heart or circulation problems kidney disease or problems going to the bathroom liver disease lung disease, asthma, or breathing problems an unusual or allergic reaction to acetaminophen, codeine, salicylates, other opioid analgesics, other medicines, foods, dyes, or preservatives or trying to get breast-feeding What should I watch for while using this medicine? Tell your doctor or health manager care management if your pain does not go away, if it gets worse, or if you have new or a different type of pain. You may develop tolerance to the medication. Tolerance means that you will need a higher dose of the medication for pain relief. Tolerance is normal and is expected if you take the medicine for a long time. Do not suddenly stop taking your medicine because you may develop a severe reaction. Your body becomes used to the medicine. This does NOT mean you are addicted. Addiction is a behavior related to getting and using a drug for a non medical reason. If you have pain, you have a medical reason to take pain medicine. Your doctor will tell you how much medicine to take. If your doctor wants you to stop the medicine, the dose will be slowly lowered over time to avoid any side effects. You may get drowsy or dizzy. Do not drive, use machinery, or do anything that needs mental alertness until you know how this medicine affects you. Do not stand or sit up quickly, especially if you are an older patient. This reduces the risk of dizzy or fainting spells. Alcohol may interfere with the effect of this medicine. Avoid alcoholic drinks. There are different types of narcotic medicines (opiates) for pain. If you take more than one type at the same time, you may have more side effects. Give your health care provider a list of all medicines you use. Your doctor will tell you how much medicine to take. Do not take more medicine than directed. Call emergency for help if you have problems breathing. The medicine will cause constipation. Try to have a bowel movement at least every 2 to 3 days. If you do not have a bowel movement for 3 days, call your doctor or health manager care management. Do not take Tylenol (acetaminophen) or medicines that have acetaminophen with this medicine. Too much acetaminophen can be very dangerous. Many nonprescription medicines contain acetaminophen. Always read the labels carefully to avoid taking more acetaminophen. Immediately call your physician or get emergency help if you are breast-feeding and your baby is sleepier than usual, is limp, or has difficulty or breathing. Penicillin V Potassium Oral tablet What is this medicine? PENICILLIN V (pen i SILL in V) is a penicillin antibiotic. It is used to treat certain kinds of bacterial infections. It will not work for colds, flu, or other viral infections. How should I use this medicine? Take this medicine by mouth with a full glass of water. Follow the directions on the prescription label. Take your medicine at regular intervals. Do not take your medicine more often than directed. Take all of your medicine as directed even if you think your are better. Do not skip doses or stop your medicine early. Talk to your school transportation supervisor regarding the use of this medicine in children. While this drug may be prescribed for selected conditions, precautions do apply. What side effects may I notice from receiving this medicine? Side effects that you should report to your doctor or health manager care management as soon as possible: allergic reactions like skin rash or hives, swelling of the face, lips, or tongue breathing problems fever new symptoms of infection redness, blistering, peeling or loosening of the skin, including inside the mouth unusually weak or tired Side effects that usually do not require medical attention (report to your doctor or health manager care management if they continue or are bothersome): diarrhea headache nausea, vomiting sore mouth or tongue stomach upset What may interact with this medicine? control pills methotrexate other antibiotics probenecid some vaccines What if I miss a dose? If you miss a dose, take it as soon as you can. If it is almost time for your next dose, take only that dose. Do not take double or extra doses. Where should I keep my medicine? Keep out of the reach of children. Store at room temperature between 15 and 30 degrees C (59 and 86 degrees F). Keep container tightly closed. Throw away any unused medicine after the expiration date. What should I tell my health care provider before I take this medicine? They need to know if you have any of these conditions: asthma bowel disease, like colitis eczema kidney disease an unusual or allergic reaction to penicillin, cephalosporins, other antibiotics or medicines, foods, tartrazine or other dyes, or preservatives or trying to get breast-feeding What should I watch for while using this medicine? Tell your doctor or health manager care management if your symptoms do not improve. Do not treat diarrhea with over the counter products. Contact your doctor if you have diarrhea that lasts more than 2 days or if it is severe and watery. If you have diabetes, you may get a false-positive result for sugar in your urine. Check with your doctor or health manager care management. control pills may not work properly while you are taking this medicine. Talk to your doctor about using an extra method of control. You have been given the following additional information: Dental Cavity Dental Pain Acetaminophen, Codeine Phosphate Oral tablet Penicillin V Potassium Oral tablet (Electronically signed by Cait Sheikh A.R.N.P. 06/14/2016 21:27)
--- NOTE | 2016-06-14 21:37 | ED MED RECONCILIATION SUMMARY ---
Patient: FINN HUNTER Medication Reconciliation Report [facility] VisitID: [id number] [address] [place] [address] 35y, F Registration Date/Time: 06/14/2016 Weight: 68.0 kg Height/Length: 69 in. BMI: 22.2 ALLERGIES: [place] The patient's Home Medications are listed below: NONE. The source(s) of the original Home Medication information: Not obtained. The following Medications were given to the patient in the Emergency Department: None. The following Medications were prescribed to the patient: Tylenol with Codeine Tylenol #3 (30 mg / 300 mg) : take 1 tablet orally every 6 hours as needed for pain. Dispense five (5). No refill. -- Cait Sheikh, A.R.N.P. Penicillin V 500mg: take 1 tab orally every 6 hours for 10 days. Dispense forty (40). No refill -- Cait Sheikh, A.R.N.P.
--- NOTE | 2016-06-14 21:37 | ED MED RECONCILIATION SUMMARY ---
Patient: FINN HUNTER Medication Reconciliation Report [facility] VisitID: [id number] [address] [place] [address] 35y, F Registration Date/Time: 06/14/2016 Weight: 68.0 kg Height/Length: 69 in. BMI: 22.2 ALLERGIES: [place] The patient's Home Medications are listed below: NONE. The source(s) of the original Home Medication information: Not obtained. The following Medications were given to the patient in the Emergency Department: None. The following Medications were prescribed to the patient: Tylenol with Codeine Tylenol #3 (30 mg / 300 mg) : take 1 tablet orally every 6 hours as needed for pain. Dispense five (5). No refill. -- Cait Sheikh, A.R.N.P. Penicillin V 500mg: take 1 tab orally every 6 hours for 10 days. Dispense forty (40). No refill -- Cait Sheikh, A.R.N.P.
--- NOTE | 2016-06-14 21:37 | ED MAR SUMMARY ---
..... Medication Administration Record [facility] [address] [place], [place] [id number] Patient: FINN HUNTER Visit ID: [id number] 35y, F Weight: 68.0 kg Height/Length: 69 in BMI: 22.2 ALLERGIES: [place]
--- NOTE | 2016-06-14 21:37 | ED MAR SUMMARY ---
..... Medication Administration Record [facility] [address] [place], [place] [id number] Patient: FINN HUNTER Visit ID: [id number] 35y, F Weight: 68.0 kg Height/Length: 69 in BMI: 22.2 ALLERGIES: [place]
== END 2016-06-14 21:20 | disposition home or self-care (01) ==
LOC: ED SRH 20:39
DX: K02.9 Dental caries, unspecified (principal); F17.210 Nicotine dependence, cigarettes, uncomplicated